=== PATIENT | female | born 1960 | race Caucasian/White ===

== ENCOUNTER → 2016-03-10 | Day surgery (SDC) | payer OTHER ==
[2016-03-08 13:33] VITALS: BMI 36.0
[~2016-03-10] VITALS: Ht 170.2 cm; Wt 107.0 kg
[2016-03-10] VITALS (8 sets, daily range): BP systolic 122–176; BP diastolic 74–124; PULSE 80–117; TEMP 37.1; O2SAT 92–100; Ht 170.2 cm; Wt 107.0 kg
[~2016-03-10] MED LIST: ACYC400T PO; AMT/25 PO; AMT50 PO; ASPI81TA28 PO; ATROPINE SULFATE 0.1 MG/ML 5ML SYR IV PRN; CMD5 PO; CRG3125 PO; DPKSR250 PO; ESCI1TAB10 PO; EpHEDrine SULFATE INJ 50 MG/ML AMP IV PRN; FENTANYL CITRATE INJ 50 MCG/1 ML 2 ML VIAL ONE; FRS/40 PO; KETAMINE HCL INJ 50 MG/ML 10 ML VIAL ONE; LACTATED RINGER'S 1000ML 1,000 ML IV SCH; METO50TA17 PO; MIDAZOLAM HCL 1 MG/ML 2ML VIAL ONE; OXYC1TAB3 PO; POTA10TA32 PO; PRENTAB26 PO; RANI150T3 PO; SUMA50TA15 PO; ZLF50 PO; ZVRUNK PO
--- NOTE | 2016-03-10 08:12 | Anesthesiology Progress Note ---
Anesthesia Post Op Note Date & Time Mar 10, 2016 at 08:11 Vital Signs Pain Intensity: 7 Vital Signs Past 12 Hours Date Time Temp Pulse Resp B/P Pulse Ox O2 Delivery O2 Flow Rate FiO2 03/10/16 08:01 88 20 153/97 99 Nasal Cannula 3 03/10/16 07:51 37.4 90 23 140/93 97 Nasal Cannula 3 03/10/16 07:50 98 24 155/94 100 Nasal Cannula 5 03/10/16 07:45 92 20 163/113 92 Nasal Cannula 5 03/10/16 07:44 94 12 174/124 92 Nasal Cannula 5 03/10/16 07:40 91 26 176/111 92 Nasal Cannula 5 03/10/16 07:35 117 10 161/97 93 Nasal Cannula 5 03/10/16 07:30 83 10 165/109 99 Nasal Cannula 5 03/10/16 07:05 37.1 80 16 137/88 93 Room Air Notes Mental Status: alert / awake / arousable, participated in evaluation Pt Amnestic to Procedure: Yes Nausea / Vomiting: adequately controlled Pain: adequately controlled Airway Patency, RR, SpO2: stable & adequate BP & HR: stable & adequate Hydration State: stable & adequate Anesthetic Complications: no major complications apparent
--- NOTE | 2016-03-10 08:43 | History & Physical Bridge Note ---
H&P Re-Evaluation Bridge Note: I have examined the patient, reviewed the History & Physical and in the interval since the performance of the History & Physical I have noted the following changes of clinical significance: No changes noted
--- NOTE | 2016-03-10 08:45 | Discharge Instructions ---
Discharge Instructions Admission Reason for Admission: W/Anesthesia Aortic Stenosis; *Dr Leslie To Do* Discharge Discharge Diagnosis / Problem: AORTIC STENOSIS Discharge Goals Goal(s): Diagnostic testing Activity Recommendations Activity Limitations: resume your previous activity . Instructions / Follow-Up Instructions / Follow-Up Cardiology Office will call Current Hospital Diet Patient's current hospital diet: Discharge Diet Recommended Diet: AHA Diet (Heart Healthy) Pending Studies Studies pending at discharge: no Medical Emergencies . Who to Call and When: Medical Emergencies: If at any time you feel your situation is an emergency, please call 911 immediately. . Non-Emergent Contact Non-Emergency issues call your: Bag Making Machine Operator . . "Provider Documentation" section prepared by Avinash Leslie. VTE Core Measure Inpt VTE Proph given/why not?: Treatment not indicated
--- NOTE | 2016-03-10 13:32 | TEE ---
*NOTICE TO RECEIVING DEMOCRAT AGENCY This information is strictly Confidential and protected under [place] law. [place] law prohibits you from making any further disclosure of this information unless further disclosure is expressly permitted by the written consent of the person to whom it pertains or is authorized by law. A general authorization for the release of medical or other information is not sufficient for this purpose. Hospital accepts no responsibility if the information is made available to any other person, INCLUDING THE PATIENT. Interpretation Summary * Name: SOL WOOD Study Date: 03/10/2016 07:24 AM BP: 153/97 mmHg * Patient Location: AIRCRAFT MAINTENANCE MANAGER HR: 88 * : 1960 (M/d/yyyy) Gender: Female Height: 67 in * Age: 55 yrs Ethnicity: [place] Weight: 275 lb * Ordering Physician: Avinash Leslie DO * Performed By: Rolanda Beckford * * Reason For Study: AORTIC STENOSIS * BSA: 2.3 m2 * -- Conclusions -- * Robinul 50 mg administered for to reduce oral secretions. * A bicuspid aortic valve cannot be excluded. * Severe aortic stenosis * Left ventricular systolic function is normal. Procedure Details * The transesophageal portion of this study was personally supervised by the undersigned interpreting physician. * DAMON Probe #2 utilized for procedure. * The study was performed in Cardiac Catheterization Lab. * Time out was conducted by the physician, nurse, and spd tech with positive identification of patient and procedure. * Informed consent for Transesophageal Echocardiogram was obtained prior to the procedure. * An intravenous line was placed. A topical anesthetic agent was used for oropharangeal anesthesia. A bite block was inserted. * Sedation performed by the anesthesia department. * The patient's vital signs, including blood pressure, heart rate, pulse oximetry and cardiac rhythm were monitored throughout the procedure . * Fentanyl 100 mcg was administered for procedural sedation. * Midazolam 2 mg administered for sedation. * Robinul 50 mg administered for to reduce oral secretions. * The posterior oropharynx was anesthetized using a topical anesthetic spray. A bite guard was inserted. * A multifrequency, multiplane transesopheageal echocardiographic endoscope was inserted and manipulated in the standard fashion to achieve multiplane views. * The transesophageal probe was passed without difficulty. * Limited views were obtained. * A 2D transesophageal echocardiogram with spectral and color flow Doppler was performed. Left Ventricle * The left ventricle is grossly normal size. * Left ventricular systolic function is normal. * The left ventricular wall motion is normal. Right Ventricle * The right ventricular systolic function is normal. Atria * The left atrial size is normal. * No thrombus is detected in the left atrial appendage. * Right atrial size is normal. * There is no Doppler evidence for an atrial septal defect. Mitral Valve * The mitral valve anatomy is normal. * Significant mitral regurgitation is absent. Tricuspid Valve * The tricuspid valve anatomy is normal. * Significant tricuspid regurgitation is absent. Aortic Valve * A bicuspid aortic valve cannot be excluded. * Severe aortic stenosis Pulmonic Valve * The pulmonic valve is not well seen, but is grossly normal. * There is no significant pulmonary regurgitation. Great Vessels * The aortic root and proximal ascending aorta are normal sized. Pericardium * There is no pericardial effusion.
== END | disposition home or self-care (01) ==
LOC: C.CATH 06:22
PROVIDERS: ATTEND Internal Medicine Interventional Cardiology
DX: Q23.0 Congenital stenosis of aortic valve (principal); Z79.899 Other long term (current) drug therapy; I10 Essential (primary) hypertension

== ENCOUNTER → 2016-04-11 | Day surgery (SDC) | payer OTHER ==
[~2016-04-11] VITALS: Ht 170.2 cm; Wt 106.0 kg
[~2016-04-11] MED LIST changes: +ACETAMINOPHEN 325 MG TAB PO PRN; -EpHEDrine SULFATE INJ 50 MG/ML AMP IV PRN; -KETAMINE HCL INJ 50 MG/ML 10 ML VIAL ONE; -LACTATED RINGER'S 1000ML 1,000 ML IV SCH; +ONDANSETRON INJ 2 MG/ML 2 ML VIAL IV PRN; +SODIUM CHLORIDE 0.9% 1000ML 1,000 ML IV SCH; +SODIUM CHLORIDE 0.9% 1000ML 250 ML IV PRN; -ZVRUNK PO
[2016-04-11 07:24] VITALS: Ht 170.2 cm; Wt 106.0 kg
[2016-04-11 07:26] VITALS: BP 119/87; PULSE 75; TEMP 36.2; O2SAT 92
[2016-04-11 10:01] LABS: ISTAT ARTERIAL BLOOD GAS HCO3 25 meq/L (19-24); ISTAT ARTERIAL BLOOD GAS PCO2 49 mmHg (35-46); ISTAT ARTERIAL BLOOD GAS PO2 39 mmHg (80-95); ISTAT ARTERIAL BLOOD GAS pH 7.32 (7.35-7.45); ISTAT CARBON DIOXIDE 27 mEq/l (24-31)
[2016-04-11 10:24] LABS: ISTAT ARTERIAL BLOOD GAS HCO3 24 meq/L (19-24); ISTAT ARTERIAL BLOOD GAS PCO2 43 mmHg (35-46); ISTAT ARTERIAL BLOOD GAS PO2 101 mmHg (80-95); ISTAT ARTERIAL BLOOD GAS pH 7.35 (7.35-7.45); ISTAT CARBON DIOXIDE 25 mEq/l (24-31)
--- NOTE | 2016-04-11 10:35 | Cardiac Catheterization ---
Procedure Note Procedure Date Apr 11, 2016. Pre-Procedure Diagnosis Valvular Disease AUC Score 8 Post-Procedure Diagnosis Normal Coronary Arteries, Normal Intracardiac Pressures Procedure(s) Performed Coronary Angiography, Left Heart Cath, Right Heart Cath, Aortography Plate Roller Dr. Leslie Lance Crewmember(s) None Estimated Blood Loss None Medication(s) Fentanyl, Versed, Lidocaine 1% Summary of Findings Unable to cross aortic valve due to severe stenosis. Normal coronaries. Hemodynamics Rest Ao: 143/94 Final Ao: 155/104 LV: Valve not crossed RA: 11 RV: 27/12 PA: 29/18 PW: 17 Recommendations valve replacement Specimens None Radiation Exposure (mGy) 1515 Contrast (mls) 141 Fluids (cc crystalloids) 144 Procedural Complication(s) None Disposition Tape Controlled Machine Stitcher Holding/Recovery ACC Data Cardiac Status Clinical evaluation leading to the procedure CAD Presntation: No Sxs, no angina Anginal Classification: No symptoms Heart Failure: No Cardiogenic Shock w/in 24Hrs: No Cardiac Arrest w/in 24Hrs: No Imaging studies past 6 months: Yes Stress studies past 6 months: No Standard Exercise Stress Test: No Stress Echocardiogram: No Stress Testing w/SPECT MPI: No Cardiac CTA: No Coronary Anatomy Dominant: Left Left Main (% Stenosis): Normal LAD (% Stenosis): Normal Circumflex (% Stenosis): Normal RCA (% Stenosis): Normal Aortography Aortic Regurgitation: None Diagnostic Physician's Name: Avinash Leslie, Status: Elective Closure Device Percutaneous Entry Location: Femoral Closure Device: Mynx Recommendations: Medical therapy and/or Counseling
--- NOTE | 2016-04-11 11:15 | CARDIAC CATH REPORT ---
PROCEDURES: 1. Left heart catheterization. 2. Right heart catheterization. 3. Coronary angiography. 4. Aortography. HISTORY: The patient is a 55-year-old female who has had known aortic stenosis and recently had an echocardiogram for followup which suggested severe aortic stenosis. The patient was completely asymptomatic in regard to her heart valve. It was decided to perform a transesophageal echocardiogram to confirm the diagnosis of aortic stenosis, which was completed several weeks ago and agreed with the transthoracic study. The patient is now scheduled for cardiac catheterization in preparation for surgery. PROCEDURE SUMMARY: The patient was seen in the holding area of the energy systems laboratory director. Once informed consent was obtained, she was taken to the cardiac catheterization lab. She was a difficult access from the femoral approach. Eventually, an arterial line was placed in the right femoral artery, and with the use of ultrasound, a sheath was placed in the left femoral vein. The study then continued on. A [place]-Pham catheter was utilized for right heart pressures and cardiac outputs, and preformed diagnostic catheter was utilized for the coronary angiograms. The aortic valve, however, could not be crossed with the wire. Multiple catheters were utilized in an attempt to gain access through the aortic valve. The patient was uncomfortable on the x-ray table and eventually it was decided that we should proceed on with the cardiac catheterization. At the end of the procedure, the arterial line was removed with the Mynx device. The patient then was transferred to the holding area of the energy systems laboratory director in stable condition. AORTOGRAM: There is evidence of heavy calcium at the aortic root and aortic valve. There is post-stenotic dilatation of the ascending aorta. There is no significant aortic insufficiency. CORONARY ANGIOGRAPHY: Selective injections of the left coronary artery reveal it to be large and dominant. The left main trunk is widely patent. The LAD extends to the apex of the heart, giving off a single large diagonal branch. The LAD system is widely patent. The left circumflex artery consists principally of 2 posterior lateral marginal branches that also supply the septum. The left circumflex system is widely patent. Selective injections of the right coronary artery reveal it to be nondominant and widely patent. HEMODYNAMIC DATA: The right atrial pressure is a mean of 11 mmHg, right ventricular pressure is 27/12 mmHg, pulmonary artery pressure is 29/18 mmHg, pulmonary capillary wedge pressure is a mean of 17 mmHg, central aortic pressure is 155/104. Cardiac output by thermal dilution is 5.1 liters per minute. SUMMARY: The patient has critical calcific aortic stenosis which we were not able to cross with a wire and could not place a catheter across. She has post-stenotic dilatation of the ascending aorta. Coronary anatomy is widely patent and within normal limits. RECOMMENDATIONS: The patient has a transthoracic as well such as a transesophageal echocardiogram that suggests severe aortic stenosis. As mentioned above, we were not able to cross the aortic valve due to the heavy calcium and stenosis. We proceeded on with the heart catheterization and she has normal coronaries but the aorta is dilated. She will need an aortic valve replacement and possibly aortic root replacement as well. We will have a consultation with the surgeons.
--- NOTE | 2016-04-11 13:47 | Discharge Instructions ---
Discharge Instructions Procedure Procedure Date: Apr 11, 2016. Reason for Visit: Aortic Stenosis *. Discharge Discharge Date: Apr 11, 2016. Discharge Diagnosis: Aortic Stenosis Last Recorded Wt (Kilograms): 106 Anesthesia Post Anesthesia Instructions: If you have had General Anesthesia or IV Sedation: * Do not drive today. * Resume driving when surgeon permits. * Do not make important decisions or sign legal documents today. * Call surgeon for: 1. Temperature elevations greater than 101 degrees F. 2. Uncontrollable pain. 3. Excessive bleeding. 4. Persistent nausea and vomiting. 5. Medication intolerance (nausea, vomiting or rash). * For nausea and vomiting use only clear liquids such as: tea, soda, bouillon until nausea subsides, then gradually increase diet as tolerated. * If you have any concerns or questions, call your surgeon's office. If physician is unavailable and it is an emergency, call 911 or go to the nearest emergency room. Instructions Activity Recommendations: limitations Recommended Home Diet: resume previous diet Allergies: Coded Allergies: Penicillins (Verified Allergy, Mild, rash, 03/08/16) Provider Instructions ACTIVITY RECOMMENDATIONS: It is common to feel weak and fatigue for a few days. * Do not drive or operate any motorized equipment for the next three days. * Limit stair usage (2 or 3 trips a day only) for the next three days. * Do not lift anything heavier than 10 pounds for the next three days. * Do not engage in vigorous exercise or any sports for the next five days. * You may shower the day after your procedure, but do not immerse the area for three days. Cleanse the site gently with soap and water. SPECIAL CARE INSTRUCTIONS: * You may replace the pressure dressing or band-aid the morning after the procedure. * After your procedure, it is normal to have a small bruise or small lump at the site. Examine your site daily for any change in the bruise or lump, redness, swelling, drainage or numbness. Notify your doctor if any change. BLEEDING: * If there is a small amount of bleeding at the site, lie down and apply firm pressure with a clean cloth for ten minutes. When the bleeding stops, lie quietly keeping the procedure limb straight for six hours. Notify your doctor as soon as possible. * If the bleeding does not stop after ten minutes or if there is a large amount of bleeding or spurting, call 911 immediately. Continue to lie down and hold firm pressure until help arrives. SKIN IRRITATION: * You may experience some redness and/or swelling in the area where radiation was administered. If any skin irritation occurs, please contact your family physician. FOLLOW UP VISIT: Keep any scheduled doctor appointments. Follow Up Follow-up with: Office will call with appointment to see cardiothoracic surgery Aneudy Boland Recommendations: Call your doctor if: * Temperature above 101 degrees * Pain not relieved by pain medicine ordered * There is increased drainage or redness from any incision * You have any unanswered questions or concerns. Your Doctors Instructions noted above were prepared by provider Avinash Leslie. Patient Signature Section: Patient Instructions Signature Page Rosi Jeffery Patient (or Guardian) Signature/Date: I have read and understand the instructions given to me by my caregivers. Caregiver/RN/Doctor Signature/Date: The above-named patient and/or guardian has received patient instructions on this date. + Original Patient Signature Page (only) stays with chart. Please make copy for patient.
[2016-04-11 14:30] VITALS: BP 150/106; PULSE 88; O2SAT 99
== END | disposition home or self-care (01) ==
LOC: C.CATH 06:52
PROVIDERS: ATTEND Internal Medicine Interventional Cardiology
DX: I25.10 Atherosclerotic heart disease of native coronary artery without angina pectoris (principal); Q23.1 Congenital insufficiency of aortic valve; I10 Essential (primary) hypertension

== ENCOUNTER 2016-06-14 13:49 | Inpatient (IN) | payer OTHER ==
[~2016-06-14] VITALS: Ht 170.2 cm; Wt 100.4 kg
[2016-06-14] VITALS (7 sets, daily range): BP systolic 93–118; BP diastolic 62–83; PULSE 96–125; TEMP 36.5–36.7; O2SAT 96–99; Ht 170.2 cm; Wt 100.4 kg
[~2016-06-14 13:49] MED LIST changes: -ACETAMINOPHEN 325 MG TAB PO PRN; -AMT50 PO; -ASPI81TA28 PO; -ATROPINE SULFATE 0.1 MG/ML 5ML SYR IV PRN; -CMD5 PO; -DPKSR250 PO; -ESCI1TAB10 PO; -FENTANYL CITRATE INJ 50 MCG/1 ML 2 ML VIAL ONE; -FRS/40 PO; -METO50TA17 PO; -MIDAZOLAM HCL 1 MG/ML 2ML VIAL ONE; -ONDANSETRON INJ 2 MG/ML 2 ML VIAL IV PRN; -OXYC1TAB3 PO; -POTA10TA32 PO; -PRENTAB26 PO; -SODIUM CHLORIDE 0.9% 1000ML 1,000 ML IV SCH; -SODIUM CHLORIDE 0.9% 1000ML 250 ML IV PRN; -ZLF50 PO
[2016-06-14] MEDS ORDERED: ONDANSETRON INJ 2 MG/ML 2 ML VIAL IV STA (14:10)
[2016-06-14] MEDS ORDERED: DILTIAZEM BOLUS / DRIP IV STA ×2 (14:10→19:39)
[2016-06-14] MEDS ORDERED: SODIUM CHLORIDE 0.9% 500ML 500 ML IV STA (14:10)
[2016-06-14] MEDS ORDERED: DILTIAZEM HCL 5 MG/ML 5 ML VIAL IV STA (14:10)
[2016-06-14] MEDS ORDERED: HYDROmorphone INJ 1 MG/ML SYR IV STA (14:10)
--- NOTE | 2016-06-14 14:12 | EMERGENCY ROOM VISIT NOTE ---
History Report prepared by Jessica: Michaelle Jurado Under the Supervision of: Dr. Murtaza Escobar M.D. First contact with patient: 14:01 Chief Complaint: SHORTNESS OF BREATH Stated Complaint: SOB, GALLOPPING HEART, TIREDNESS History of Present Illness The patient is a 55 year old female who presents to the Emergency Room with complaints of persistent shortness of breath over the past 2-3 days. She also complains of feeling very tired and occasional palpitations, which she describes as galloping. The patient has a history of aortic stenosis. The patient states that she had her aorta replaced with a pig valve on May 29 in [place] by Dr. Ramirez. Since her surgery, she has been taking narcotics for chest pain adjacent to the incision site. Prior to her surgery her symptoms included shortness of breath and fatigue. She follows with Dr. Leslie of Cardiology. Past medical history includes hypertension. She is not on a blood thinner. Source of History: patient Onset: 2-3 days ago Position: other (global) Quality: other (shortness of breath) Timing: other (persistent) Associated Symptoms: No chest pain Note: Other symptoms: palpitations, tired Review of Systems See HPI for pertinent positives & negatives. A total of 10 systems reviewed and were otherwise negative. Past Medical & Surgical Medical Problems: (1) Ascending aortic aneurysm (2) Bicuspid aortic valve (3) Depression (4) GERD (gastroesophageal reflux disease) (5) Herpes zoster (6) HTN (hypertension) Surgical Problems: (1) H/O tubal ligation (2) S/P ascending aortic aneurysm repair (3) S/P AVR (aortic valve replacement) Family History Gallbladder disease Heart disease Hypertension Social History Smoking Status: Never Smoker Alcohol Use: none Drug Use: none Marital Status: single Housing Status: lives alone Occupation Status: disabled Current/Historical Medications Scheduled Acyclovir (Acyclovir), 1 TAB PO BID Amitriptyline Hcl (Elavil), 50 MG PO HS Aspirin (Aspirin Ec), 81 MG PO QAM Carvedilol (Carvedilol), 3.125 MG PO BID Escitalopram Oxalate (Lexapro), 20 MG PO QAM Furosemide (Lasix), 40 MG PO DAILY Multivit/Min/Iron/Fol Ac/Pren ( Vitamin), 1 TAB PO DAILY Potassium Chloride Microencaps (Potassium Chloride Er), 10 MEQ PO DAILY Ranitidine Hcl (Zantac), 150 MG PO BID Scheduled PRN Oxycodone Ir (Roxicodone Ir), 5 MG PO Q4H PRN for Severe Pain Sumatriptan Succinate (Imitrex), 50 MG PO DIRECTED PRN for Migraine Allergies Coded Allergies: Penicillins (Verified Allergy, Mild, rash, 06/14/16) Physical Exam Vital Signs Date Time Temp Pulse Resp B/P Pulse Ox O2 Delivery O2 Flow Rate FiO2 06/14/16 15:15 93 20 123/64 97 Room Air 06/14/16 14:45 125 22 113/78 95 Room Air 06/14/16 14:34 94 Room Air 06/14/16 14:08 137 06/14/16 13:57 36.6 138 18 90/54 98 Room Air Physical Exam GENERAL: Patient is a healthy-appearing well-nourished 55 year old female HEAD: Normocephalic atraumatic EYES: Ocular movements intact pupils equal and react to light OROPHARYNX mucous membranes are moist no exudates present no erythema or edema present NECK: Supple no nuchal rigidity CHEST: Good equal expansion LUNGS: Clear and equal to auscultation CARDIAC: Normal S1 and S2 ABDOMEN: Soft nontender no guarding BACK: No CVA tenderness EXTREMITIES: No pain upon palpation normal muscle strength in all groups no clubbing cyanosis or edema NEURO: Patient is following commands is answering questions appropriately. Alert and oriented x3 Cranial Nerves 2-12 grossly intact Medical Decision & Procedures ER Provider Diagnostic Interpretation: Radiology results as stated below per my review and radiologist interpretation: CHEST ONE VIEW PORTABLE CLINICAL HISTORY: Sepsis 50 COMPARISON STUDY: No previous studies for comparison. FINDINGS: The heart is normal in size. There are postsurgical changes of a midline sternotomy. There is no failure. There is no focal pulmonary consolidation. Haziness at the left lung base, likely is secondary to overlying soft tissue.[ IMPRESSION: Slight haziness at the left lung base, likely secondary to overlying soft tissues. No evidence of failure. No evidence of lobar consolidation Electronically signed by: Angel Figueroa M.D. 06/14/2016 2:37 PM Dictated Date/Time: 06/14/2016 2:[address] ANGIOGRAM OF THE CHEST CLINICAL HISTORY: Atypical chest pain. COMPARISON STUDY: Chest x-ray dated 06/14/2016. TECHNIQUE: Following the IV administration of 94 cc of Optiray 320, CT angiogram of the chest was performed from the upper abdomen to the thoracic inlet utilizing the pulmonary embolus protocol. Images are reviewed in the axial, sagittal, and coronal planes. 3-D MIPS images are created and assessed. IV contrast was administered without complication. CT DOSE: 635.86 mGy.cm FINDINGS: Thyroid: Imaged portions of the thyroid gland appear enlarged and heterogeneous. There are bilateral low-attenuation thyroid nodules as well as coarse calcifications. The largest nodules seen on the left and measures up to 2.3 cm. Thoracic aorta: There is atherosclerotic calcification of the thoracic aorta, which is normal in caliber and demonstrates standard 3-vessel arch anatomy. There is mild irregularity and focal narrowing seen involving the distal aortic arch/proximal descending thoracic aorta without clear evidence of cortication. No dissection is seen. Pulmonary vasculature: The pulmonary trunk is normal in caliber. There are no filling defects identified in main, lobar, or segmental pulmonary branches to suggest pulmonary embolus. Heart: The patient is status post midline sternotomy. Findings suggest aortic and mitral valve surgery. The heart is enlarged and there is a small pericardial effusion. Lungs and pleural spaces: Mild emphysematous change is observed. No airspace consolidation is identified typical for pneumonia. There are trace pleural effusions with dependent atelectasis. There are scattered pulmonary nodules. The largest nodule is seen in the right lower lobe on image #141 and measures 5 mm. 4 mm nodules are seen in the left upper lobe on image #225 and at the left lung base on images #98 and #96. A 2 mm right middle lobe nodule seen image #130. The trachea and central airways are clear. Mediastinum: There is no mediastinal lymphadenopathy. [place]: Clear. Axillae: There is no axillary lymphadenopathy. Upper abdomen: There is evidence of hepatic steatosis. Partially visualized upper abdominal viscera is within normal limits. Skeletal structures: No lytic or blastic bony lesions are seen. Soft tissues: Presternal soft tissue induration may be related to recent surgery. IMPRESSION: 1. There is no evidence of pulmonary embolus in the main, lobar, or segmental pulmonary arteries. 2. Cardiomegaly and small pericardial effusion. 3. There is presternal soft tissue induration, possibly related to recent surgery/sternotomy. Clinical correlation will be required. 4. Trace pleural effusions. There is no airspace consolidation seen typical for pneumonia. 5. Emphysema. 6. There are small pulmonary nodules (at least 5) measuring up to 5 mm. These can be followed as per the Fleischner criteria. 7. The thyroid gland is enlarged, heterogeneous, and multinodular. Follow-up with a nonemergent thyroid ultrasound is recommended. 8. Suspect hepatic steatosis. 9. Additional findings as above. Please refer to below summary of Fleischner criteria recommendations for follow-up of incidental CT nodules (Sang Kendall, Guidelines for management of small pulmonary nodules detected on CT scans: A statement from the Fleischner Society, Radiology 237: [phone].) SOLID NODULES Solitary nodule size: <6 mm * low risk patients: no follow-up needed * high risk patients: optional CT at 12 months Solitary nodule size: 6-8 mm * low risk patients: follow-up at 6-12 months, then consider further follow-up at 18-24 months * high risk patients: initial follow-up CT at 6-12 months and then at 18-24 months if no change Solitary nodule size: >8 mm * either low or high risk patients - consider follow-up CT at 3 months, and/or CT-PET, and/or biopsy Multiple nodules size: <6 mm * low risk patients: no routine follow-up * high risk patients: optional CT at 12 months Multiple nodules size: 6-8 mm * low risk patients: follow-up at 3-6 months, then consider further follow-up at 18-24 months * high risk patients: follow-up at 3-6 months, then at 18-24 months if no change Multiple nodules size: >8 mm * low risk patients: follow-up at 3-6 months, then consider further follow-up at 18-24 months * high risk patients: follow-up at 3-6 months, then at 18-24 months if no change Note: newly detected indeterminate nodule in persons 35 years of age or older. * low risk patients: minimal or absent history of smoking and/or other known risk factors * high risk patients: history of smoking or of other known risk factors (e.g. first degree relative with lung cancer, or exposure to asbestos, radon, uranium) * if a nodule up to 8 mm is partly solid or is ground glass further follow-up is required after 24 months to exclude possible slow growing adenocarcinoma (MILIND) SUBSOLID NODULES Solitary pure ground-glass nodule * nodule size <6 mm - no CT follow-up required * nodule size >=6 mm - follow-up CT at 6-12 months, then every 2 years until 5 years Solitary part-solid nodule * nodule size <6 mm - no CT follow-up required * nodule size >=6 mm - follow-up CT at 3-6 months. If unchanged, and solid component remains <6 mm, then annual follow-up for 5 years Multiple subsolid nodules * nodule size <6 mm - follow-up CT at 3-6 months, consider further follow-up at 2 and 4 years if stable * nodule size >=6 mm - follow-up CT at 3-6 months, subsequent management based on the most suspicious nodule(s) Electronically signed by: Brady Waggoner M.D. 06/14/2016 3:05 PM Dictated Date/Time: 06/14/2016 2:54 PM Laboratory Results Test 06/14/16 14:20 06/14/16 14:23 06/14/16 14:27 Immature Granulocyte % (Auto) 0.4 % White Blood Count 9.57 K/uL (4.8-10.8) Red Blood Count 4.01 M/uL (4.2-5.4) Hemoglobin 12.8 g/dL (12.0-16.0) Hematocrit 37.8 % (37-47) Mean Corpuscular Volume 94.3 fL (80-100) Mean Corpuscular Hemoglobin 31.9 pg (25-34) Mean Corpuscular Hemoglobin Concent 33.9 g/dl (32-36) Platelet Count 583 K/uL (130-400) Mean Platelet Volume 9.5 fL (7.4-10.4) Neutrophils (%) (Auto) 58.7 % Lymphocytes (%) (Auto) 28.8 % Monocytes (%) (Auto) 8.8 % Eosinophils (%) (Auto) 2.2 % Basophils (%) (Auto) 1.1 % Neutrophils # (Auto) 5.61 K/uL (1.4-6.5) Lymphocytes # (Auto) 2.76 K/uL (1.2-3.4) Monocytes # (Auto) 0.84 K/uL (0.11-0.59) Eosinophils # (Auto) 0.21 K/uL (0-0.5) Basophils # (Auto) 0.11 K/uL (0-0.2) Immature Granulocyte # (Auto) 0.04 K/uL (0.00-0.02) Magnesium Level 2.5 mg/dl (1.8-2.4) Total Bilirubin 0.4 mg/dl (0.2-1) Aspartate Amino Transf (AST/SGOT) 35 U/L (15-37) Alanine Aminotransferase (ALT/SGPT) 62 U/L (12-78) Alkaline Phosphatase 119 U/L (45-117) Total Creatine Kinase 35 U/L (26-192) Total Protein 7.5 gm/dl (6.4-8.2) Albumin 3.3 gm/dl (3.4-5.0) Globulin 4.2 gm/dl (2.5-4.0) Albumin/Globulin Ratio 0.8 (0.9-2) Thyroid Stimulating Hormone (TSH) 0.913 uIu/ml (0.300-4.500) Hepatitis C Antibody Screen NEG (NEG) Bedside Hemoglobin 12.9 g/dl (12.0-16.0) Bedside Hematocrit 38 % (37-47) Bedside Sodium 137 mEq/L (135-144) Bedside Potassium 4.2 mEq/L (3.3-5.0) Bedside Chloride 101 mEq/L (101-112) Bedside Total CO2 23 mEq/l (24-31) Bedside Blood Urea Nitrogen 11 mg/dl (7-18) Bedside Creatinine 0.6 mg/dl (0.6-1.3) Bedside Glucose (other) 103 mg/dl (70-99) Bedside Ionized Calcium ([place]) 1.18 mmol/l (1.12-1.32) Bedside Lactic Acid Venous 1.20 mmol/L (0.90-1.70) Labs reviewed by ED physician. Medications Administered Medications (Trade) Dose Ordered Sig/Favian Route Start Time Stop Time Status Last Admin Dose Admin Sodium Chloride (Nss 500ml) 500 ml @ 999 mls/hr Q31M STAT IV 06/14/16 14:10 06/14/16 14:45 DC 06/14/16 15:03 999 MLS/HR Diltiazem HCl (Cardizem Inj) 25 mg NOW STAT IV 06/14/16 14:10 06/14/16 14:13 DC 06/14/16 14:59 25 MG Hydromorphone HCl (Dilaudid Inj) 1 mg NOW STAT IV 06/14/16 14:10 06/14/16 14:13 DC 06/14/16 14:42 1 MG Ondansetron HCl 4 mg 4 mg NOW STAT IV 06/14/16 14:10 06/14/16 14:13 DC 06/14/16 14:42 4 MG Diltiazem HCl/ Dextrose (Cardizem Inj/D5 100ml) 125 ml @ 5 mls/hr Q24H PRN IV 06/14/16 14:30 06/14/16 17:20 DC 06/14/16 15:02 5 MLS/HR ECG Indication: SOB/dyspnea Rate (beats per minute): 131 Rhythm: atrial fibrillation (with RVR) Findings: PVC, no acute ischemic change Comparison ECG Date: 03/10/16 Change: A-fib with RVR has replaced normal sinus rhythm ED Course 1402: Past medical records reviewed. The patient was evaluated in room B1. A complete history and physical examination was performed. 1410: Ordered Zofran Inj 4 mg IV, Dilaudid Inj 1 mg IV, Diltiazem HCl 1 ea IV, Diltiazem HCl 25 mg IV, NSS 500 ml @ 999 mls/hr IV. 1430: Ordered Diltiazem HCl 125 mg/Dextrose 125 ml @ 5 mls/hr IV. 1533: Upon reexamination the patient is feeling better. I discussed results and treatment plan with the patient. She verbalizes agreement and understanding. [facility] The patient will be evaluated for further management. 1543: I discussed the case with Dr. Anuj Velázquez Cardiology. He will come to see the patient. Medical Decision Differential diagnosis: Etiologies such as metabolic, infection, hypo/hyperglycemia, electrolyte abnormalities, cardiac sources, intracerebral event, toxicologic, neurologic, as well as others were entertained. This is a 55-year-old female that presents to the emergency department with new onset atrial fibrillation. The patient has been complaining of shortness of breath for the past 2 or 3 days. Her heart rate is in the 150s therefore she was given Cardizem bolus and started on a Cardizem drip. I did discuss the case with Dr. Leslie who is on-call for cardiology. The patient was admitted to the medicine service. Patient was in agreement with the treatment plan. Consults Time Called: 1509 Consulting Physician: Dr. Anuj Velázquez Cardiology Returned Call: 1543 I discussed the case with him. He will come to see the patient. Additional Consults: Time Called: 1530 Consulted Physician: NI[facility] Returned Call: 1533 Additional Comments: I discussed the case with her. The patient will be evaluated for further management. Impression Primary Impression: New onset a-fib Critical Care I have personally spent greater than 90 minutes of critical care time in the direct management of this patient. This includes bedside care, interpretation of diagnostic studies, and testing, discussion with consultants, patient, and family members, and other required patient management activities. This 90 minutes is in excess of all separately billable procedures. Scribe Attestation The scribe's documentation has been prepared under my direction and personally reviewed by me in its entirety. I confirm that the note above accurately reflects all work, treatment, procedures, and medical decision making performed by me. Departure Information Dispostion Being Evaluated By Hospitalist Referrals No Doctor, Assigned (PCP) Patient Instructions My [facility]
[2016-06-14] MEDS ORDERED: OPTIRAY 320 IV PRN (14:15)
[2016-06-14] MEDS ORDERED: NURSING VERBAL MED ORDER ONE ×2 (14:30→17:15)
[2016-06-14] MEDS ORDERED: DILTIAZEM HCL INJ 125 MG in DEXTROSE 5% 100ML IV PRN ×2 (14:30→20:00)
[2016-06-14 14:33] LABS: BASO % 1.1 %; BASO ABS # 0.11 K/uL (0-0.2); COMPLETE YES; EOS % 2.2 %; HEMATOCRIT 37.8 % (37-47); IG% 0.4 %; LYMPH % 28.8 %; LYMPH ABS # 2.76 K/uL (1.2-3.4); MEAN CELL VOLUME 94.3 fL (80-100); MEAN CORPUSCULAR HEMOGLOBIN 31.9 pg (25-34); MEAN CORPUSCULAR HGB CONC 33.9 g/dl (32-36); MEAN PLATELET VOLUME 9.5 fL (7.4-10.4); MONO % 8.8 %; NEUT % 58.7 %; PLATELET COUNT 583 K/uL (130-400); RED BLOOD COUNT 4.01 M/uL (4.2-5.4); WHITE BLOOD COUNT 9.57 K/uL (4.8-10.8)
--- NOTE | 2016-06-14 14:39 | DIAGNOSTIC IMAGING REPORT ---
CHEST ONE VIEW PORTABLE CLINICAL HISTORY: Sepsis 50 COMPARISON STUDY: No previous studies for comparison. FINDINGS: The heart is normal in size. There are postsurgical changes of a midline sternotomy. There is no failure. There is no focal pulmonary consolidation. Haziness at the left lung base, likely is secondary to overlying soft tissue.[ IMPRESSION: Slight haziness at the left lung base, likely secondary to overlying soft tissues. No evidence of failure. No evidence of lobar consolidation Electronically signed by: Angel Figueroa M.D. 06/14/2016 2:37 PM Dictated Date/Time: 06/14/2016 2:34 PM
[2016-06-14 14:41] LABS: ISTAT CREATININE 0.6 mg/dl (0.6-1.3); ISTAT HEMOGLOBIN 12.9 g/dl (12.0-16.0); ISTAT IONIZED CALCIUM 1.18 mmol/l (1.12-1.32)
[2016-06-14 14:49] LABS: PROTHROMBIN TIME (PATIENT) 10.6 SECONDS (9.0-12.0)
[2016-06-14 15:05] LABS: ALB/GLOB RATIO 0.8 (0.9-2); ALKALINE PHOSPHATASE 119 U/L (45-117); ALT/SGPT 62 U/L (12-78); AST/SGOT 35 U/L (15-37); BLOOD UREA NITROGEN 12 mg/dl (7-18); BUN/CREATININE RATIO 16.4 (10-20); CALCIUM 8.9 mg/dl (8.5-10.1); CARBON DIOXIDE 25 mmol/L (21-32); CHLORIDE 103 mmol/L (98-107); CREATININE 0.72 mg/dl (0.60-1.20); GLUCOSE 105 mg/dl (70-99); POTASSIUM 4.2 mmol/L (3.5-5.1); SODIUM 138 mmol/L (136-145)
--- NOTE | 2016-06-14 15:07 | DIAGNOSTIC IMAGING REPORT ---
CT ANGIOGRAM OF THE CHEST CLINICAL HISTORY: Atypical chest pain. COMPARISON STUDY: Chest x-ray dated 06/14/2016. TECHNIQUE: Following the IV administration of 94 cc of Optiray 320, CT angiogram of the chest was performed from the upper abdomen to the thoracic inlet utilizing the pulmonary embolus protocol. Images are reviewed in the axial, sagittal, and coronal planes. 3-D MIPS images are created and assessed. IV contrast was administered without complication. CT DOSE: 635.86 mGy.cm FINDINGS: Thyroid: Imaged portions of the thyroid gland appear enlarged and heterogeneous. There are bilateral low-attenuation thyroid nodules as well as coarse calcifications. The largest nodules seen on the left and measures up to 2.3 cm. Thoracic aorta: There is atherosclerotic calcification of the thoracic aorta, which is normal in caliber and demonstrates standard 3-vessel arch anatomy. There is mild irregularity and focal narrowing seen involving the distal aortic arch/proximal descending thoracic aorta without clear evidence of cortication. No dissection is seen. Pulmonary vasculature: The pulmonary trunk is normal in caliber. There are no filling defects identified in main, lobar, or segmental pulmonary branches to suggest pulmonary embolus. Heart: The patient is status post midline sternotomy. Findings suggest aortic and mitral valve surgery. The heart is enlarged and there is a small pericardial effusion. Lungs and pleural spaces: Mild emphysematous change is observed. No airspace consolidation is identified typical for pneumonia. There are trace pleural effusions with dependent atelectasis. There are scattered pulmonary nodules. The largest nodule is seen in the right lower lobe on image #141 and measures 5 mm. 4 mm nodules are seen in the left upper lobe on image #225 and at the left lung base on images #98 and #96. A 2 mm right middle lobe nodule seen image #130. The trachea and central airways are clear. Mediastinum: There is no mediastinal lymphadenopathy. [place]: Clear. Axillae: There is no axillary lymphadenopathy. Upper abdomen: There is evidence of hepatic steatosis. Partially visualized upper abdominal viscera is within normal limits. Skeletal structures: No lytic or blastic bony lesions are seen. Soft tissues: Presternal soft tissue induration may be related to recent surgery. IMPRESSION: 1. There is no evidence of pulmonary embolus in the main, lobar, or segmental pulmonary arteries. 2. Cardiomegaly and small pericardial effusion. 3. There is presternal soft tissue induration, possibly related to recent surgery/sternotomy. Clinical correlation will be required. 4. Trace pleural effusions. There is no airspace consolidation seen typical for pneumonia. 5. Emphysema. 6. There are small pulmonary nodules (at least 5) measuring up to 5 mm. These can be followed as per the Fleischner criteria. 7. The thyroid gland is enlarged, heterogeneous, and multinodular. Follow-up with a nonemergent thyroid ultrasound is recommended. 8. Suspect hepatic steatosis. 9. Additional findings as above. Please refer to below summary of Fleischner criteria recommendations for follow-up of incidental CT nodules (Sang Kendall, Guidelines for management of small pulmonary nodules detected on CT scans: A statement from the Fleischner Society, Radiology 237: [phone].) SOLID NODULES Solitary nodule size: <6 mm * low risk patients: no follow-up needed * high risk patients: optional CT at 12 months Solitary nodule size: 6-8 mm * low risk patients: follow-up at 6-12 months, then consider further follow-up at 18-24 months * high risk patients: initial follow-up CT at 6-12 months and then at 18-24 months if no change Solitary nodule size: >8 mm * either low or high risk patients - consider follow-up CT at 3 months, and/or CT-PET, and/or biopsy Multiple nodules size: <6 mm * low risk patients: no routine follow-up * high risk patients: optional CT at 12 months Multiple nodules size: 6-8 mm * low risk patients: follow-up at 3-6 months, then consider further follow-up at 18-24 months * high risk patients: follow-up at 3-6 months, then at 18-24 months if no change Multiple nodules size: >8 mm * low risk patients: follow-up at 3-6 months, then consider further follow-up at 18-24 months * high risk patients: follow-up at 3-6 months, then at 18-24 months if no change Note: newly detected indeterminate nodule in persons 35 years of age or older. * low risk patients: minimal or absent history of smoking and/or other known risk factors * high risk patients: history of smoking or of other known risk factors (e.g. first degree relative with lung cancer, or exposure to asbestos, radon, uranium) * if a nodule up to 8 mm is partly solid or is ground glass further follow-up is required after 24 months to exclude possible slow growing adenocarcinoma (MILIND) SUBSOLID NODULES Solitary pure ground-glass nodule * nodule size <6 mm - no CT follow-up required * nodule size >=6 mm - follow-up CT at 6-12 months, then every 2 years until 5 years Solitary part-solid nodule * nodule size <6 mm - no CT follow-up required * nodule size >=6 mm - follow-up CT at 3-6 months. If unchanged, and solid component remains <6 mm, then annual follow-up for 5 years Multiple subsolid nodules * nodule size <6 mm - follow-up CT at 3-6 months, consider further follow-up at 2 and 4 years if stable * nodule size >=6 mm - follow-up CT at 3-6 months, subsequent management based on the most suspicious nodule(s) Electronically signed by: Brady Waggoner M.D. 06/14/2016 3:05 PM Dictated Date/Time: 06/14/2016 2:54 PM
[2016-06-14] MEDS ORDERED: AMT50 PO (15:21)
[2016-06-14] MEDS ORDERED: ESCI1TAB10 PO (15:21)
[2016-06-14] MEDS ORDERED: FRS/40 PO (15:21)
[2016-06-14] MEDS ORDERED: OXYC1TAB3 PO (15:21)
[2016-06-14] MEDS ORDERED: PRENTAB26 PO (15:21)
[2016-06-14] MEDS ORDERED: ASPI81TA28 PO (15:21)
[2016-06-14] MEDS ORDERED: POTA10TA32 PO (15:21)
[2016-06-14] MEDS ORDERED: ONDANSETRON INJ 2 MG/ML 2 ML VIAL IV PRN (16:15)
[2016-06-14] MEDS ORDERED: ACETAMINOPHEN 325 MG TAB PO PRN (16:15)
[2016-06-14] MEDS ORDERED: AMIODARONE IV BOLUS / DRIP IV STA (16:15)
[2016-06-14] MEDS ORDERED: PROMETHAZINE HCL INJ 12.5 MG in SODIUM CHLORIDE 0.9% 50ML 50 ML IV PRN (16:30)
[2016-06-14] MEDS ORDERED: AMIODARONE / D5W 100 ML IV ONE (16:50)
[2016-06-14] MEDS ORDERED: HEPARIN SOD 5000 UNIT/0.5 ML CARP IV STA (16:55)
--- NOTE | 2016-06-14 16:56 | CARDIOLOGY CONSULTATION ---
DATE OF CONSULTATION: 06/14/2016 DATE OF CONSULTATION: 06/14/2016. Consultation for the [facility] hospitalist. REASON FOR CONSULTATION: Atrial fibrillation. HISTORY OF PRESENT ILLNESS: This is a 55-year-old female who is well known to my service. She presented with symptoms of shortness of breath. She had a history of a bicuspid aortic valve. The findings of the echocardiogram and the patient's symptoms did not correlate and we performed a transesophageal echocardiogram that suggested a severe aortic stenosis. We then went on to perform a cardiac catheterization and she was evaluated by cardiothoracic surgery. This month she underwent an aortic valve replacement and root repair by cardiothoracic surgery at [facility]. Her postoperative course was unremarkable and she was discharged home. She did well until about Sunday. She states that she felt some heart palpitations and some mild dyspnea. Today, she felt a lot worse and her heart was racing and she was dyspneic. She presented to the Emergency Department where she was found to be in atrial fibrillation with RVR. She has been started on IV heparin and diltiazem. Her heart rates have slowed and she feels much improved. ALLERGIES: PENICILLIN. PAST MEDICAL HISTORY: As described above. She has a history of congenital bicuspid aortic valve with severe aortic stenosis and aneurysm of the aortic root and ascending aorta. She just had a repair and replacement of the aortic valve performed earlier this month. She also has a history of hypertension and depression. No prior history of diabetes, strokes or kidney disease. SOCIAL HISTORY: She is a never smoker. FAMILY MEDICAL HISTORY: Noncontributory. REVIEW OF SYSTEMS: A 10-point review of systems is negative except for the history of chief complaint. PHYSICAL EXAMINATION: GENERAL: She is alert and oriented in no acute distress. VITAL SIGNS: Blood pressure is 110/70, pulse is irregular at 80 beats per minute. She is afebrile. HEAD, EYES, EARS, NOSE, AND THROAT: She wears corrective lenses. Mucous membranes are moist. She is normocephalic. NECK: The neck veins are flat. Carotids have good upstrokes bilaterally without bruits. Thyroid is nonpalpable. RESPIRATORY: Breath sounds equal bilaterally and clear to auscultation. CARDIOVASCULAR: Heart has an irregular rhythm. Normal S1, S2, no S3, S4. She has a recent open heart surgery scar on her chest. LUNGS: Are clear to auscultation bilaterally. GASTROINTESTINAL: Abdomen is soft, nontender without organomegaly. EXTREMITIES: Free of edema, digit clubbing, or cyanosis. NEUROLOGIC: Grossly intact. SKIN: Warm to touch. LYMPH NODES: Negative to palpation. IMPRESSION: 1. A congenital bicuspid aortic valve with severe aortic stenosis and an aneurysm of the aortic root and ascending aorta status post aortic valve replacement with a bioprosthesis and repair of the aorta May 2016 [facility]. 2. Atrial fibrillation and rapid ventricular response, which is most likely postop complication. 3. History of depression. 4. History of hypertension. RECOMMENDATIONS: The patient was not started on amiodarone postop. I think she would benefit from being started on amiodarone today for better heart rate control as well as when she goes back into sinus rhythm either on her own or by cardioversion. She will stay on the amiodarone at least for a brief time. I would plan on echocardiogram. I would continue the IV heparin at this time.
[2016-06-14] MEDS ORDERED: AMIODARONE / D5W 200 ML IV ONE (17:00)
[2016-06-14] MEDS: HEPARIN 25,000 UNIT/500ML D5W 500 ML IV PRN (17:08)
[2016-06-14 17:14] LABS: MAGNESIUM 2.5 mg/dl (1.8-2.4); THYROID STIMULATING HORMONE 0.913 uIu/ml (0.300-4.500)
--- NOTE | 2016-06-14 19:22 | History and Physical ---
History & Physical Date & Time of Service: Jun 14, 2016 ~ 16:00 Chief Complaint: Palpitations, Shortness of Breath Primary Care Physician: Dr. Garcia History of Present Illness 55 year old female who presents to the ER with palpitations and shortness of breath. Patient recently underwent aortic valve replacement with bioprosthetic valve and ascending aortic aneurysm repair with grafting on 05/29 at [facility] [place]. Patient reports she had been feeling well since her surgery however over the past few days has noted increasing weakness, shortness of breath, and palpitations. Patient denies chest pain or pressure. She reports shortness of breath at rest as well as with exertion. She denies lower extremity edema. No lightheadedness, dizziness, diaphoresis, or syncopal events. She denies abdominal pain, nausea, vomiting, and diarrhea. No fever or chills. She denies urinary symptoms. In the ER, patient is found to be in afib with RVR with rates in the 130s. She was given Cardizem 25mg IV bolus followed by a drip. Rates improved to the 90s. Patient's symptoms have improved as well. Labs are unremarkable. Past Medical/Surgical History Medical Problems: (1) Ascending aortic aneurysm Status: Chronic (2) Bicuspid aortic valve Status: Chronic (3) Depression Status: Chronic (4) GERD (gastroesophageal reflux disease) Status: Chronic (5) Herpes zoster Status: Chronic (6) HTN (hypertension) Status: Chronic Surgical Problems: (1) H/O tubal ligation Status: Chronic (2) S/P ascending aortic aneurysm repair Status: Chronic (3) S/P AVR (aortic valve replacement) Status: Chronic Social History Smoking Status: Never Smoker Alcohol Use: none Drug Use: none Immunizations History of Tetanus Vaccine?: Yes Tetanus Immunization Date: Oct 02, 2007 Multi-Drug Resistant Organisms History of MDRO: Yes Type of MDRO: MRSA Allergies Coded Allergies: Penicillins (Verified Allergy, Mild, rash, 06/14/16) Home Medications Scheduled Acyclovir (Acyclovir), 1 TAB PO BID Amitriptyline Hcl (Elavil), 50 MG PO HS Aspirin (Aspirin Ec), 81 MG PO QAM Carvedilol (Carvedilol), 3.125 MG PO BID Escitalopram Oxalate (Lexapro), 20 MG PO QAM Furosemide (Lasix), 40 MG PO DAILY Multivit/Min/Iron/Fol Ac/Pren ( Vitamin), 1 TAB PO DAILY Potassium Chloride Microencaps (Potassium Chloride Er), 10 MEQ PO DAILY Ranitidine Hcl (Zantac), 150 MG PO BID Scheduled PRN Oxycodone Ir (Roxicodone Ir), 5 MG PO Q4H PRN for Severe Pain Sumatriptan Succinate (Imitrex), 50 MG PO DIRECTED PRN for Migraine Review of Systems 10 point review of systems was completed with the pertinent positives and negatives noted per the HPI Physical Exam Vital Signs Date Time Temp Pulse Resp B/P Pulse Ox O2 Delivery O2 Flow Rate FiO2 06/14/16 17:30 106 20 117/73 96 06/14/16 17:00 106 20 117/73 96 Room Air 06/14/16 15:15 93 20 123/64 97 Room Air 06/14/16 14:45 125 22 113/78 95 Room Air 06/14/16 14:34 94 Room Air 06/14/16 14:08 137 06/14/16 13:57 36.6 138 18 90/54 98 Room Air General Appearance: no apparent distress Head: normocephalic Eyes: normal inspection ENT: hearing grossly normal Neck: supple, no JVD Respiratory/Chest: lungs clear, normal breath sounds, no respiratory distress Cardiovascular: no edema, + irregularly irregular (rate controlled) Abdomen/GI: normal bowel sounds, non tender, soft Extremities/Musculoskelatal: normal inspection, no calf tenderness Neurologic/Psych: no motor/sensory deficits, alert, normal mood/affect, oriented x 3 Skin: normal color, warm/dry Diagnostics Laboratory Results Results Past 24 Hours Test 06/14/16 14:20 06/14/16 14:23 06/14/16 14:27 Range/Units White Blood Count 9.57 4.8-10.8 K/uL Red Blood Count 4.01 4.2-5.4 M/uL Hemoglobin 12.8 12.0-16.0 g/dL Hematocrit 37.8 37-47 % Mean Corpuscular Volume 94.3 80-100 fL Mean Corpuscular Hemoglobin 31.9 25-34 pg Mean Corpuscular Hemoglobin Concent 33.9 32-36 g/dl Platelet Count 583 130-400 K/uL Mean Platelet Volume 9.5 7.4-10.4 fL Neutrophils (%) (Auto) 58.7 % Lymphocytes (%) (Auto) 28.8 % Monocytes (%) (Auto) 8.8 % Eosinophils (%) (Auto) 2.2 % Basophils (%) (Auto) 1.1 % Neutrophils # (Auto) 5.61 1.4-6.5 K/uL Lymphocytes # (Auto) 2.76 1.2-3.4 K/uL Monocytes # (Auto) 0.84 0.11-0.59 K/uL Eosinophils # (Auto) 0.21 0-0.5 K/uL Basophils # (Auto) 0.11 0-0.2 K/uL RDW Standard Deviation 45.2 36.4-46.3 fL RDW Coefficient of Variation 13.1 11.5-14.5 % Immature Granulocyte % (Auto) 0.4 % Immature Granulocyte # (Auto) 0.04 0.00-0.02 K/uL Prothrombin Time 10.6 9.0-12.0 SECONDS Prothromb Time International Ratio 1.0 0.9-1.1 Activated Partial Thromboplast Time 25.4 21.0-31.0 SECONDS Partial Thromboplastin Ratio 1.0 Sodium Level 138 136-145 mmol/L Potassium Level 4.2 3.5-5.1 mmol/L Chloride Level 103 98-107 mmol/L Carbon Dioxide Level 25 21-32 mmol/L Anion Gap 10.0 18.0 16-25 mmol/L Blood Urea Nitrogen 12 7-18 mg/dl Creatinine 0.72 0.60-1.20 mg/dl Est Creatinine Clear Calc Drug Dose 107.2 ml/min Estimated GFR () 108.5 Estimated GFR (Non- 93.6 BUN/Creatinine Ratio 16.4 10-20 Random Glucose 105 70-99 mg/dl Calcium Level 8.9 8.5-10.1 mg/dl Magnesium Level 2.5 1.8-2.4 mg/dl Total Bilirubin 0.4 0.2-1 mg/dl Aspartate Amino Transf (AST/SGOT) 35 15-37 U/L Alanine Aminotransferase (ALT/SGPT) 62 12-78 U/L Alkaline Phosphatase 119 45-117 U/L Total Creatine Kinase 35 26-192 U/L Creatine Kinase MB 0.7 0.5-3.6 ng/ml Creatine Kinase MB Ratio 2.0 0-3.0 Troponin I < 0.015 0-0.045 ng/ml Total Protein 7.5 6.4-8.2 gm/dl Albumin 3.3 3.4-5.0 gm/dl Globulin 4.2 2.5-4.0 gm/dl Albumin/Globulin Ratio 0.8 0.9-2 Thyroid Stimulating Hormone (TSH) 0.913 0.300-4.500 uIu/ml Bedside Hemoglobin 12.9 12.0-16.0 g/dl Bedside Hematocrit 38 37-47 % Bedside Sodium 137 135-144 mEq/L Bedside Potassium 4.2 3.3-5.0 mEq/L Bedside Chloride 101 101-112 mEq/L Bedside Total CO2 23 24-31 mEq/l Bedside Blood Urea Nitrogen 11 7-18 mg/dl Bedside Creatinine 0.6 0.6-1.3 mg/dl Bedside Glucose (other) 103 70-99 mg/dl Bedside Ionized Calcium (Kamilah) 1.18 1.12-1.32 mmol/l Bedside Lactic Acid Venous 1.20 0.90-1.70 mmol/L Microbiology Results 06/14/16 Blood Culture, Received Pending 06/14/16 Blood Culture, Received Pending Diagnostic Radiology CXR IMPRESSION: Slight haziness at the left lung base, likely secondary to overlying soft tissues. No evidence of failure. No evidence of lobar consolidation CTA CHEST IMPRESSION: 1. There is no evidence of pulmonary embolus in the main, lobar, or segmental pulmonary arteries. 2. Cardiomegaly and small pericardial effusion. 3. There is presternal soft tissue induration, possibly related to recent surgery/sternotomy. Clinical correlation will be required. 4. Trace pleural effusions. There is no airspace consolidation seen typical for pneumonia. 5. Emphysema. 6. There are small pulmonary nodules (at least 5) measuring up to 5 mm. These can be followed as per the Fleischner criteria. 7. The thyroid gland is enlarged, heterogeneous, and multinodular. Follow-up with a nonemergent thyroid ultrasound is recommended. 8. Suspect hepatic steatosis. 9. Additional findings as above. Impression Assessment and Plan NEW ONSET ATRIAL FIBRILLATION WITH RVR HX AV REPLACEMENT, ASCENDING AORTIC ANEURYSM REPAIR - admit to tele - patient presenting with increasing generalized weakness, shortness of breath, and palpitations; found to be in afib with RVR with rates in the 130s - had bioprosthetic aortic valve replacement and ascending aortic aneurysm repair on 05/29 for bicuspid aortic valve and aortic stenosis - s/p Cardizem 25mg IV bolus, followed by drip with improvement in rates - suspect due to recent aortic valve replacement - electrolytes and TSH WNL, no infectious source noted - initial troponin negative, will continue to trend; check resting echo - BP low on presentation however improved with HR control - will start IV heparin - patient was started on Lasix post op - will continue - case discussed with Dr. Leslie - will stop IV cardizem and transition to IV amiodarone PROLONGED QTC - noted to be 502 - will hold amitriptyline and escitalopram - check daily EKG - avoid QTC prolonging agents when able HTN - BP controlled - holding carvedilol for now while on amio drip DEPRESSION - holding amitriptyline and escitalopram due to prolonged QTC MULTINODULAR THYROID - noted on CTA chest - will need thyroid US for follow up 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 - outpatient followup DVT PROPHYLAXIS - on heparin drip DISPO - In my clinical judgment this beneficiary meets acute admission criteria, established by CMS, that includes being hospitalized through two midnights. I have seen and examined the patient and discussed the case with the provider above. I agree with the assessment and plan as stated. [place], DO Level of Care Telemetry Resuscitation Status FULL RESUSCITATION VTE Prophylaxis VTE Risk Assessment Done? Y/N: Yes Risk Level: Moderate Given or contraindicated: Other Anticoagulation (heparin drip)
[2016-06-14] MEDS ORDERED: DILTIAZEM HCL 5 MG/ML 5 ML VIAL IV SCH (20:00)
[2016-06-14] MEDS ORDERED: OXYCODONE/ACETAMINOPHEN 10/325MG TAB PO ONE (20:00)
[2016-06-14] MEDS: RANITIDINE HCL 150 MG TAB PO SCH (20:17)
[2016-06-14] MEDS: ACYCLOVIR 400 MG TAB PO SCH (20:19)
[2016-06-14 21:35] LABS: URINE APPEARANCE CLEAR (CLEAR); URINE BILIRUBIN NEG (NEG); URINE COLOR YELLOW; URINE NITRITE NEG (NEG); URINE SPECIFIC GRAVITY > 1.045 (1.000-1.030); UROBILINOGEN NEG (NEG)
[2016-06-14 21:39] LABS: MANUAL MICROSCOPIC REQUIRED? NO; REVIEW REQ? NO
[2016-06-14] MEDS ORDERED: AMIODARONE / D5W 200 ML IV SCH (23:00)
[2016-06-14 23:17] LABS: PARTIAL THROMBOPLASTIN RATIO 1.8
[2016-06-15] VITALS (9 sets, daily range): BP systolic 106–139; BP diastolic 62–84; PULSE 68–94; TEMP 36.4–36.8; O2SAT 91–98
[2016-06-15] MEDS ORDERED: HEPARIN IV BOLUS 3,000 UNIT in SYRINGE 0 ML IV STA (00:02)
[2016-06-15] MEDS: HEPARIN 25,000 UNIT/500ML D5W 500 ML IV PRN ×2 (00:36→04:33)
[2016-06-15] MEDS: OXYCODONE HCL IR 5 MG TAB (IMMEDIATE RELEASE) PO PRN ×2 (04:42→19:44)
[2016-06-15 06:05] LABS: HEMATOCRIT 36.1 % (37-47); MEAN CELL VOLUME 96.5 fL (80-100); MEAN CORPUSCULAR HEMOGLOBIN 30.5 pg (25-34); MEAN CORPUSCULAR HGB CONC 31.6 g/dl (32-36); MEAN PLATELET VOLUME 9.4 fL (7.4-10.4); PLATELET COUNT 467 K/uL (130-400); RED BLOOD COUNT 3.74 M/uL (4.2-5.4); WHITE BLOOD COUNT 8.46 K/uL (4.8-10.8)
[2016-06-15 06:21] LABS: PARTIAL THROMBOPLASTIN RATIO 2.1
[2016-06-15 06:35] LABS: BUN/CREATININE RATIO 14.4 (10-20); CALCIUM 8.8 mg/dl (8.5-10.1); CREATININE 0.7 mg/dl (0.60-1.20); POTASSIUM 3.8 mmol/L (3.5-5.1)
--- NOTE | 2016-06-15 08:01 | Clinical Documentation Query ---
Dr. JERON[facility] [place] : CLINICAL DOCUMENTATION QUERY Patient is a 55 year old female who recently underwent AVR with ascending TAA repair on 05/29 at [facility] [place]. She presented with SOB, weakness, and palpitations, subsequently determined to be in new onset atrial fibrillation with RVR. Documentation states that arrhythmia is suspected to be due to recent AVR. As appropriate, please explicitly clarify as suggested below so as to avoid audio tape librarian uncertainty at time of discharge. Thank you. In your clinical opinion is this patient being managed for: ( ) Postoperative atrial fibrillation, a complication of care ( + ) Postoperative atrial fibrillation, expected ( ) Other explanation of clinical findings (Please Explain) ( ) Unable to determine (Please Define) ( ) Need to Discuss ( ) Not Agree The medical record reflects the following clinical findings, treatment, and risk factors. Clinical Indicators: As above Treatment: Telemetry, cardiology consultation, Cardizem infusion, serial chemistries, echocardiogram, IV Heparin. Risk Factors: Recent AVR and ascending TAA repair. Please clarify and document your clinical opinion in the progress notes and discharge summary. Terms such as "probable", "suspected", "likely", "questionable", "possible", or "still to be ruled out" are acceptable. IF IN AGREEMENT, YOU MUST DOCUMENT ABOVE DIAGNOSTIC STATEMENT IN DAILY PROGRESS NOTES AND DISCHARGE SUMMARY. This document is not part of the patient's record. Thank You, Ha Vance, DEEDEE [phone]
[2016-06-15] MEDS ORDERED: PERFLUTREN LIPID MICROSPHERE (DEFINITY) IV ONE (08:04)
[2016-06-15] MEDS: RANITIDINE HCL 150 MG TAB PO SCH ×2 (08:27→21:13)
[2016-06-15] MEDS: ACYCLOVIR 400 MG TAB PO SCH ×2 (08:27→21:13)
[2016-06-15] MEDS: PRENATAL VITAMIN TAB PO SCH (08:28)
[2016-06-15] MEDS: ASPIRIN 81 MG ECTAB PO SCH (08:28)
[2016-06-15] MEDS: FUROSEMIDE 40 MG TAB PO SCH (08:28)
[2016-06-15] MEDS: POTASSIUM CHLORIDE 10 MEQ TABCR PO SCH (08:28)
--- NOTE | 2016-06-15 10:31 | CARDIOLOGY PROGRESS NOTE ---
DATE: 06/15/2016 DATE: 06/15/2016. FOLLOW-UP VISIT SUBJECTIVE: The patient is a 55-year-old female who recently underwent an aortic valve replacement for aortic stenosis from a congenital bicuspid aortic valve along with an aortic root and ascending aorta repair. The patient did well postop and then presented with new onset atrial fibrillation with RVR. She had an uneventful night. Her rates have been controlled with diltiazem and IV amiodarone. OBJECTIVE: GENERAL: She is alert and oriented. VITAL SIGNS: Blood pressure 120/60, pulse is irregular at 76. She is afebrile. HEAD, EYES, EARS, NOSE, AND THROAT: She is normocephalic. She wears corrective lenses. Mucous membranes are moist. NECK: The neck veins are flat. Carotids have good upstrokes bilaterally without bruits. Thyroid is nonpalpable. RESPIRATORY: Breath sounds equal bilaterally and clear to auscultation. CARDIOVASCULAR: Heart has irregular rhythm. Normal S1, S2. No S3, S4. No cardiac rubs or murmurs. GASTROINTESTINAL: Abdomen is soft, nontender without organomegaly. EXTREMITIES: Free of edema, digit clubbing, or cyanosis. NEUROLOGIC: Grossly intact. SKIN: Warm to touch. LYMPH NODES: Negative to palpation. LABORATORY DATA: Hemoglobin is 11.4, WBC count is 8.46, potassium is 3.8. Creatinine is 0.70. IMPRESSION: 1. Persistent atrial fibrillation. 2. Recent open heart surgery with aortic valve replacement and root repair. RECOMMENDATIONS: Today, she will be switched over to oral amiodarone to continue her load. I will restart her home carvedilol will at a higher dose with the hope of weaning her off of the diltiazem. She will also be started on Coumadin today.
[2016-06-15] MEDS ORDERED: CARVEDILOL 6.25 MG TAB PO ONE (11:00)
[2016-06-15 11:02] LABS: INR 1.1 (0.9-1.1); PROTHROMBIN TIME (PATIENT) 11.4 SECONDS (9.0-12.0)
[2016-06-15] MEDS: AMIODARONE 200 MG TAB PO SCH ×2 (11:14→15:47)
--- NOTE | 2016-06-15 11:31 | ECHOCARDIOGRAM REPORT ---
*NOTICE TO RECEIVING REPUBLICAN AGENCY This information is strictly Confidential and protected under [place] law. [place] law prohibits you from making any further disclosure of this information unless further disclosure is expressly permitted by the written consent of the person to whom it pertains or is authorized by law. A general authorization for the release of medical or other information is not sufficient for this purpose. Hospital accepts no responsibility if the information is made available to any other person, INCLUDING THE PATIENT. Interpretation Summary * Name: SOL WOOD Study Date: 06/15/2016 07:43 AM BP: 118/78 mmHg * Patient Location: C.2T\S\E220\S\1 HR: 94 * : 1960 (M/d/yyyy) Gender: Female Height: 67 in * Age: 55 yrs Ethnicity: CA Weight: 225 lb * Ordering Physician: Aydee Jordan * Referring Physician: Self, Referred * Performed By: Eveline Quarles RCS * * Reason For Study: A-FIB * BSA: 2.1 m2 * The study was technically limited. * -- Conclusions -- * The study was technically limited. * There is a bioprosthetic aortic valve. * The prosthetic aortic valve is not well visualized. * The prosthetic aortic valve is well-seated. * No hemodynamically significant valvular aortic stenosis. * There is no significant aortic regurgitation. * Ejection Fraction = 55-60%. Procedure Details * A complete two-dimensional transthoracic echocardiogram was performed (2D, M-mode, Doppler and color flow Doppler). * The study was technically difficult. * A contrast injection of Definity was performed to improve assessment of LV function. * Contrast was injected into an intravenous site in the right arm. * One vial of Definity ultrasound contrast was diluted in normal saline to a total volume of 10 ml. A total of '2' ml of solution was administered during imaging. * Lot # [id number] of Definity utilized for procedure. * Expiration date . Left Ventricle * The left ventricle is grossly normal size. * Ejection Fraction = 55-60%. * Left ventricular systolic function is normal. Right Ventricle * The right ventricle is grossly normal size. * The right ventricular systolic function is normal. Atria * The left atrial size is normal. * Right atrial size is normal. Mitral Valve * The mitral valve is normal in structure and function. Tricuspid Valve * The tricuspid valve is not well visualized. * The tricuspid valve is not well visualized, but is grossly normal. Aortic Valve * No hemodynamically significant valvular aortic stenosis. * There is no significant aortic regurgitation. * There is a bioprosthetic aortic valve. * The prosthetic aortic valve is not well visualized. * The prosthetic aortic valve is well-seated. Great Vessels * The aortic root and proximal ascending aorta are normal sized. Pericardium/Pleural * There is no pericardial effusion. MMode 2D Measurements and Calculations IVSd 1.1 cm IVSs 1.3 cm LVIDd 5.8 cm LVIDs 4.5 cm LVPWd 1.1 cm LVPWs 1.3 cm IVS/LVPW 1.0 FS 22.3 % EDV(Teich) 166.7 ml ESV(Teich) 92.8 ml EF(Teich) 44.3 % EDV(cubed) 195.3 ml ESV(cubed) 91.5 ml EF(cubed) 53.1 % % IVS thick 11.4 % % LVPW thick 13.6 % LV mass(C)d 276.5 grams LV mass(C)dI 130.1 grams/m\S\2 LV mass(C)s 218.1 grams LV mass(C)sI 102.6 grams/m\S\2 CO(Teich) 7.5 l/min CI(Teich) 3.5 l/min/m\S\2 SV(Teich) 73.9 ml SI(Teich) 34.8 ml/m\S\2 CO(cubed) 10.6 l/min CI(cubed) 5.0 l/min/m\S\2 SV(cubed) 103.7 ml SI(cubed) 48.8 ml/m\S\2 Ao root diam 3.1 cm Ao root area 7.8 cm\S\2 LA dimension 3.7 cm LA/Ao 1.2 LVAd ap4 44.0 cm\S\2 LVLd ap4 9.0 cm EDV(MOD-sp4) 174.0 ml LVAs ap4 29.0 cm\S\2 LVLs ap4 6.7 cm ESV(MOD-sp4) 103.0 ml EF(MOD-sp4) 40.8 % LVAd ap2 35.3 cm\S\2 LVLd ap2 8.8 cm EDV(MOD-sp2) 118.0 ml LVAs ap2 26.3 cm\S\2 LVLs ap2 8.0 cm ESV(MOD-sp2) 70.0 ml EF(MOD-sp2) 40.7 % CO(MOD-sp4) 7.2 l/min CI(MOD-sp4) 3.4 l/min/m\S\2 SV(MOD-sp4) 71.0 ml SI(MOD-sp4) 33.4 ml/m\S\2 CO(MOD-sp2) 4.9 l/min CI(MOD-sp2) 2.3 l/min/m\S\2 SV(MOD-sp2) 48.0 ml SI(MOD-sp2) 22.6 ml/m\S\2 Doppler Measurements and Calculations MV E max roberth 155.6 cm/sec MV A max roberth 41.1 cm/sec MV E/A 3.8 MV P1/2t max roberth 224.9 cm/sec MV P1/2t 95.9 msec MVA(P1/2t) 2.3 cm\S\2 MV dec slope 686.9 cm/sec\S\2 MV dec time 0.25 sec Ao V2 max 238.9 cm/sec Ao max PG 22.8 mmHg Ao max PG (full) 18.2 mmHg Ao V2 mean 151.0 cm/sec Ao mean PG 10.9 mmHg Ao mean PG (full) 8.7 mmHg Ao V2 VTI 43.6 cm LV V1 max PG 4.7 mmHg LV V1 mean PG 2.2 mmHg LV V1 max 108.0 cm/sec LV V1 mean 68.3 cm/sec LV V1 VTI 18.5 cm SV(Ao) 339.6 ml SI(Ao) 159.7 ml/m\S\2 PA V2 max 61.1 cm/sec PA max PG 1.5 mmHg TR max roberth 198.2 cm/sec
--- NOTE | 2016-06-15 11:52 | Progress Note ---
Internal Med Progress Note Date of Service: Jun 15, 2016. Provider Documentation: SUBJECTIVE: The patient was seen and examined Feels much better Denies any more palpitation No Chest pain or SOB OBJECTIVE: Vital Signs-as noted below Exam: General-no distress at rest Eyes-normal ENT-normal Neck-Supple Lungs-Decreased breath sound bilaterally Minimal crackles at the bases Heart-Regular,2/6 ESM aortic area Abdomen-Benign,no masses,bowel sound present Extremities-Trace edema bilaterally Neuro-AAOx3 Lab data as noted below. ASSESSMENT & PLAN: NEW ONSET ATRIAL FIBRILLATION WITH RVR:S/P AVR -bioprosthetic Postoperative atrial fibrillation, expected - patient presenting with increasing generalized weakness, shortness of breath, and palpitations; found to be in afib with RVR with rates in the 130s - had bioprosthetic aortic valve replacement and ascending aortic aneurysm repair on 05/29 for bicuspid aortic valve and aortic stenosis -Started on IV Heparin ,IV Cardizem and IV Amiodarone - electrolytes and TSH WNL -Appreciate Cardiology input -Wean Off Cardizem,transition to oral Amio and OP Carvedilol started -Coumadin started as well -ECHO;The study was technically limited. * There is a bioprosthetic aortic valve. * The prosthetic aortic valve is not well visualized. * The prosthetic aortic valve is well-seated. * No hemodynamically significant valvular aortic stenosis. * There is no significant aortic regurgitation. * Ejection Fraction = 55-60%. -Reverted to SR HTN - BP controlled - Carvedilol restarted MULTINODULAR THYROID - noted on CTA chest - will need thyroid US for follow up PROLONGED QTC - noted to be 502 - will hold amitriptyline and escitalopram - check daily EKG - avoid QTC prolonging agents when able DEPRESSION - holding amitriptyline and escitalopram due to prolonged QTC 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 - outpatient followup DVT PROPHYLAXIS - on heparin drip -oral Coumadin started DISPO Awaited Vital Signs: Date Time Temp Pulse Resp B/P Pulse Ox O2 Delivery O2 Flow Rate FiO2 06/15/16 11:20 36.8 86 20 106/73 95 06/15/16 08:00 95 Room Air 06/15/16 07:47 36.7 76 18 124/62 95 06/15/16 04:36 36.5 94 20 118/78 98 Room Air 06/15/16 04:00 Room Air 06/14/16 23:59 96 Room Air 06/14/16 23:49 36.6 96 20 103/72 96 Room Air 06/14/16 21:20 109 105/62 06/14/16 20:30 107 112/72 06/14/16 20:00 96 Room Air 06/14/16 19:23 36.7 125 18 93/64 96 Room Air 06/14/16 17:45 36.5 109 20 118/83 99 Room Air 06/14/16 17:30 106 20 117/73 96 06/14/16 17:00 106 20 117/73 96 Room Air 06/14/16 15:15 93 20 123/64 97 Room Air 06/14/16 14:45 125 22 113/78 95 Room Air 06/14/16 14:34 94 Room Air 06/14/16 14:08 137 06/14/16 13:57 36.6 138 18 90/54 98 Room Air Lab Results: Results Past 24 Hours Test 06/14/16 14:20 06/14/16 14:23 06/14/16 14:27 06/14/16 20:00 Range/Units White Blood Count 9.57 4.8-10.8 K/uL Red Blood Count 4.01 4.2-5.4 M/uL Hemoglobin 12.8 12.0-16.0 g/dL Hematocrit 37.8 37-47 % Mean Corpuscular Volume 94.3 80-100 fL Mean Corpuscular Hemoglobin 31.9 25-34 pg Mean Corpuscular Hemoglobin Concent 33.9 32-36 g/dl Platelet Count 583 130-400 K/uL Mean Platelet Volume 9.5 7.4-10.4 fL Neutrophils (%) (Auto) 58.7 % Lymphocytes (%) (Auto) 28.8 % Monocytes (%) (Auto) 8.8 % Eosinophils (%) (Auto) 2.2 % Basophils (%) (Auto) 1.1 % Neutrophils # (Auto) 5.61 1.4-6.5 K/uL Lymphocytes # (Auto) 2.76 1.2-3.4 K/uL Monocytes # (Auto) 0.84 0.11-0.59 K/uL Eosinophils # (Auto) 0.21 0-0.5 K/uL Basophils # (Auto) 0.11 0-0.2 K/uL RDW Standard Deviation 45.2 36.4-46.3 fL RDW Coefficient of Variation 13.1 11.5-14.5 % Immature Granulocyte % (Auto) 0.4 % Immature Granulocyte # (Auto) 0.04 0.00-0.02 K/uL Prothrombin Time 10.6 9.0-12.0 SECONDS Prothromb Time International Ratio 1.0 0.9-1.1 Activated Partial Thromboplast Time 25.4 21.0-31.0 SECONDS Partial Thromboplastin Ratio 1.0 Sodium Level 138 136-145 mmol/L Potassium Level 4.2 3.5-5.1 mmol/L Chloride Level 103 98-107 mmol/L Carbon Dioxide Level 25 21-32 mmol/L Anion Gap 10.0 18.0 16-25 mmol/L Blood Urea Nitrogen 12 7-18 mg/dl Creatinine 0.72 0.60-1.20 mg/dl Est Creatinine Clear Calc Drug Dose 107.2 ml/min Estimated GFR () 108.5 Estimated GFR (Non- 93.6 BUN/Creatinine Ratio 16.4 10-20 Random Glucose 105 70-99 mg/dl Calcium Level 8.9 8.5-10.1 mg/dl Magnesium Level 2.5 1.8-2.4 mg/dl Total Bilirubin 0.4 0.2-1 mg/dl Aspartate Amino Transf (AST/SGOT) 35 15-37 U/L Alanine Aminotransferase (ALT/SGPT) 62 12-78 U/L Alkaline Phosphatase 119 45-117 U/L Total Creatine Kinase 35 26-192 U/L Creatine Kinase MB 0.7 0.5-3.6 ng/ml Creatine Kinase MB Ratio 2.0 0-3.0 Troponin I < 0.015 0-0.045 ng/ml Total Protein 7.5 6.4-8.2 gm/dl Albumin 3.3 3.4-5.0 gm/dl Globulin 4.2 2.5-4.0 gm/dl Albumin/Globulin Ratio 0.8 0.9-2 Thyroid Stimulating Hormone (TSH) 0.913 0.300-4.500 uIu/ml Hepatitis C Antibody Screen NEG NEG Bedside Hemoglobin 12.9 12.0-16.0 g/dl Bedside Hematocrit 38 37-47 % Bedside Sodium 137 135-144 mEq/L Bedside Potassium 4.2 3.3-5.0 mEq/L Bedside Chloride 101 101-112 mEq/L Bedside Total CO2 23 24-31 mEq/l Bedside Blood Urea Nitrogen 11 7-18 mg/dl Bedside Creatinine 0.6 0.6-1.3 mg/dl Bedside Glucose (other) 103 70-99 mg/dl Bedside Ionized Calcium ([place]) 1.18 1.12-1.32 mmol/l Bedside Lactic Acid Venous 1.20 0.90-1.70 mmol/L Test 06/14/16 20:08 06/14/16 21:00 06/14/16 22:50 06/15/16 02:00 Range/Units Creatine Kinase MB < 0.5 0.5-3.6 ng/ml Troponin I 0.017 0-0.045 ng/ml Urine Color YELLOW Urine Appearance CLEAR CLEAR Urine pH 5.0 4.5-7.5 Urine Specific [place]ad[place] > 1.045 1.000-1.030 Urine Protein NEG NEG Urine Glucose (UA) NEG NEG Urine Ketones NEG NEG Urine Occult Blood NEG NEG Urine Nitrite NEG NEG Urine Bilirubin NEG NEG Urine Urobilinogen NEG NEG Urine Leukocyte Esterase NEG NEG Activated Partial Thromboplast Time 46.6 21.0-31.0 SECONDS Partial Thromboplastin Ratio 1.8 Creatine Kinase MB Ratio 0-3.0 Test 06/15/16 02:20 06/15/16 05:51 Range/Units Creatine Kinase MB 0.8 0.5-3.6 ng/ml Troponin I < 0.015 0-0.045 ng/ml White Blood Count 8.46 4.8-10.8 K/uL Red Blood Count 3.74 4.2-5.4 M/uL Hemoglobin 11.4 12.0-16.0 g/dL Hematocrit 36.1 37-47 % Mean Corpuscular Volume 96.5 80-100 fL Mean Corpuscular Hemoglobin 30.5 25-34 pg Mean Corpuscular Hemoglobin Concent 31.6 32-36 g/dl RDW Standard Deviation 46.5 36.4-46.3 fL RDW Coefficient of Variation 13.1 11.5-14.5 % Platelet Count 467 130-400 K/uL Mean Platelet Volume 9.4 7.4-10.4 fL Prothrombin Time 11.4 9.0-12.0 SECONDS Prothromb Time International Ratio 1.1 0.9-1.1 Activated Partial Thromboplast Time 54.1 21.0-31.0 SECONDS Partial Thromboplastin Ratio 2.1 Sodium Level 138 136-145 mmol/L Potassium Level 3.8 3.5-5.1 mmol/L Chloride Level 102 98-107 mmol/L Carbon Dioxide Level 28 21-32 mmol/L Anion Gap 8.0 3-11 mmol/L Blood Urea Nitrogen 10 7-18 mg/dl Creatinine 0.70 0.60-1.20 mg/dl Est Creatinine Clear Calc Drug Dose 110.6 ml/min Estimated GFR () 112.3 Estimated GFR (Non- 96.9 BUN/Creatinine Ratio 14.4 10-20 Random Glucose 135 70-99 mg/dl Calcium Level 8.8 8.5-10.1 mg/dl Microbiology Results 06/14/16 Blood Culture, Received Pending 06/14/16 Blood Culture, Received Pending 06/14/16 Urine Culture, Received Pending
[2016-06-15] MEDS: WARFARIN SOD 10 MG TAB PO SCH (15:47)
[2016-06-15] MEDS ORDERED: LORAZEPAM 0.5 MG TAB PO STA (17:50)
[2016-06-15] MEDS ORDERED: ESCITALOPRAM OXALATE 10 MG TAB PO ONE (19:00)
[2016-06-15] MEDS ORDERED: LORAZEPAM INJ 0.5 MG in SYRINGE 0.75 ML IV PRN (20:45)
[2016-06-15] MEDS: LORAZEPAM 2 MG/ML 1 ML VIAL IV PRN (21:12)
[2016-06-15] MEDS: CARVEDILOL 6.25 MG TAB PO SCH (21:12)
[2016-06-15] MEDS: AMITRIPTYLINE HCL 50 MG TAB PO SCH (21:13)
[2016-06-15] MEDS: OXYCODONE/ACETAMINOPHEN 5-325 TAB PO PRN (21:13)
[2016-06-16] VITALS (10 sets, daily range): BP systolic 103–131; BP diastolic 58–80; PULSE 67–75; TEMP 36.4–36.9; O2SAT 93–97
[2016-06-16 05:21] LABS: HEMATOCRIT 33.8 % (37-47); MEAN CORPUSCULAR HGB CONC 32.2 g/dl (32-36); MEAN PLATELET VOLUME 9.2 fL (7.4-10.4); PLATELET COUNT 416 K/uL (130-400); RED BLOOD COUNT 3.52 M/uL (4.2-5.4); WHITE BLOOD COUNT 6.04 K/uL (4.8-10.8)
[2016-06-16 05:39] LABS: INR 1.1 (0.9-1.1); PARTIAL THROMBOPLASTIN RATIO 2.2; PROTHROMBIN TIME (PATIENT) 11.9 SECONDS (9.0-12.0)
[2016-06-16] MEDS: AMIODARONE 200 MG TAB PO SCH ×2 (08:38→11:14)
[2016-06-16] MEDS: CARVEDILOL 6.25 MG TAB PO SCH (08:39)
[2016-06-16] MEDS: ASPIRIN 81 MG ECTAB PO SCH (08:40)
[2016-06-16] MEDS: POTASSIUM CHLORIDE 10 MEQ TABCR PO SCH (08:40)
[2016-06-16] MEDS: PRENATAL VITAMIN TAB PO SCH (08:41)
[2016-06-16] MEDS: ESCITALOPRAM OXALATE 20 MG TAB PO SCH (08:41)
[2016-06-16] MEDS: FUROSEMIDE 40 MG TAB PO SCH (08:42)
[2016-06-16] MEDS: RANITIDINE HCL 150 MG TAB PO SCH ×2 (08:42→20:35)
[2016-06-16] MEDS: ACYCLOVIR 400 MG TAB PO SCH ×2 (08:42→20:34)
[2016-06-16] MEDS: OXYCODONE/ACETAMINOPHEN 5-325 TAB PO PRN ×3 (08:57→22:14)
--- NOTE | 2016-06-16 11:30 | Cardiology Follow-Up ---
Subjective General Date of Service: Jun 16, 2016. Chief Complaint: follow-up exertional shortness of breath, palpitations Pt evaluation today including: conversation w/ patient, physical exam History of Present Illness The patient is a 55 year old female seen in cardiology follow-up. The patient presented with shortness of breath and sensation of heart racing and was diagnosed with new onset atrial fibrillation. I had reviewed her recent discharge summary from [facility]. The patient had recently been hospitalized from 05/29/2016 until 06/03/2016 due to symptomatic bicuspid aortic valve stenosis and ascending thoracic aorta aortopathy, she underwent bioprosthetic aortic valve replacement and aortic root/ascending thoracic aorta repair on 05/29/16. The discharge summary specifically states that there was no postoperative atrial fibrillation observed. The patient was discharged on carvedilol 3.125 mg twice a day. Patient had subsequently presented to [facility] and for treatment of atrial fibrillation received IV diltiazem, oral carvedilol, and oral amiodarone was initiated. The patient was noted to of spontaneous he converted back to sinus rhythm yesterday afternoon on 06/15/16 at 1632 hrs. Repeat EKG performed this morning 06/16/16 revealed normal sinus rhythm at 72 bpm with first-degree AV block,KS interval of 2014 ms, interventricular conduction delay with QRS duration of 120 ms, and prolonged QT interval of 521 ms. Review of prior EKG tracings while in atrial fibrillation revealed that the QT interval was also mildly prolonged at just over 500 ms. Patient feels subjectively better now that she is in sinus rhythm. She remains on a heparin infusion. Her echocardiogram revealed no pericardial effusion with grossly normal LV wall motion, and person normal prosthetic valve function. The echocardiogram was technically limited some degree given the atrial fibrillation with rapid ventricular rate and poor acoustic windows. Allergies Coded Allergies: Penicillins (Verified Allergy, Mild, rash, 06/14/16) Social History Smoking Status: Never Smoker Hx Tobacco Use In Past Year?: No Hx Alcohol Use - Type And Amou: No Hx Substance Use - Type And Am: No Physical Exam Vital Signs Last Vital Signs Documentation Date Time Temp Pulse Resp B/P Pulse Ox O2 Delivery O2 Flow Rate FiO2 06/16/16 08:00 95 Room Air 06/16/16 07:43 36.8 75 22 103/65 Physical Exam Constitutional: Level of Distress: NAD ENMT: normal ENT inspection Neck: supple Lungs: Auscultation: CTA except as noted, no wheezing Cardiovascular: Heart Auscultation: RRR, no murmurs Extremities: no cyanosis, no edema Neurologic: Gait & Station: pertinent finding (no focal deficits) Assessment and Plan Assessment and Plan Impression: 55-year-old female 1. Newly diagnosed paroxysmal atrial fibrillation 2. Status post bioprosthetic aortic valve replacement, ascending thoracic aorta graft placement having had severe bicuspid aortic valve stenosis and ascending aortography 3. History of depression/anxiety 4. Prolonged QT interval Recommendations: The patient's medications were reviewed. She is chronically on amitriptyline as well as Lexapro. Both of these medications can cause QT prolongation, and when used in combination with amiodarone can cause additive effects of prolonged QT interval and therefore I'm concerned about the potential for pro- arhythmic effect. Would appear that she needs his long-term psychiatric medications. At this time I recommend discontinuation of oral amiodarone to see if we can maintain sinus rhythm without it. Carvedilol will also be discontinued. In full transitioned to metoprolol tartrate 50 mg twice a day. Continue heparin bridge to Coumadin. Patient lives a mile away from the [facility] and states that she can have anticoagulation clinic follow- up there. Patient is to remain on telemetry. Laboratory Results Last 24 Hours Test 06/16/16 04:58 06/16/16 11:08 White Blood Count 6.04 K/uL Red Blood Count 3.52 M/uL Hemoglobin 10.9 g/dL Hematocrit 33.8 % Mean Corpuscular Volume 96.0 fL Mean Corpuscular Hemoglobin 31.0 pg Mean Corpuscular Hemoglobin Concent 32.2 g/dl RDW Standard Deviation 45.9 fL RDW Coefficient of Variation 13.2 % Platelet Count 416 K/uL Mean Platelet Volume 9.2 fL Prothrombin Time 11.9 SECONDS Prothromb Time International Ratio 1.1 Activated Partial Thromboplast Time 56.4 SECONDS Partial Thromboplastin Ratio 2.2
[2016-06-16 12:07] LABS: BUN/CREATININE RATIO 12.7 (10-20); CALCIUM 9.1 mg/dl (8.5-10.1); CREATININE 0.71 mg/dl (0.60-1.20); MAGNESIUM 2.2 mg/dl (1.8-2.4); POTASSIUM 3.9 mmol/L (3.5-5.1)
--- NOTE | 2016-06-16 13:18 | Progress Note ---
Internal Med Progress Note Date of Service: Jun 16, 2016. Provider Documentation: SUBJECTIVE: The patient was seen and examined Feels much better today Denies any more palpitation No Chest pain or SOB Reverted to SR OBJECTIVE: Vital Signs-as noted below Exam: General-no distress at rest Eyes-normal ENT-normal Neck-Supple Lungs-Decreased breath sound bilaterally Minimal crackles at the bases Heart-Regular,2/6 ESM aortic area Abdomen-Benign,no masses,bowel sound present Extremities-Trace edema bilaterally Neuro-AAOx3 Lab data as noted below. ASSESSMENT & PLAN: NEW ONSET ATRIAL FIBRILLATION WITH RVR:S/P AVR -bioprosthetic Postoperative atrial fibrillation, expected - patient presenting with increasing generalized weakness, shortness of breath, and palpitations; found to be in afib with RVR with rates in the 130s - had bioprosthetic aortic valve replacement and ascending aortic aneurysm repair on 05/29 for bicuspid aortic valve and aortic stenosis -Started on IV Heparin ,IV Cardizem and IV Amiodarone - electrolytes and TSH WNL -Appreciate Cardiology input -Wean Off Cardizem,transition to oral Amio and OP Carvedilol started -Coumadin started as well -ECHO;The study was technically limited. * There is a bioprosthetic aortic valve. * The prosthetic aortic valve is not well visualized. * The prosthetic aortic valve is well-seated. * No hemodynamically significant valvular aortic stenosis. * There is no significant aortic regurgitation. * Ejection Fraction = 55-60%. -Reverted to SR -Medications reevaluated by the [employer] -Amiodarone and Carvedilol have been stopped -Started on BB -continue Coumadin HTN - BP controlled - Carvedilol restarted MULTINODULAR THYROID - noted on CTA chest - will need thyroid US for follow up PROLONGED QTC - noted to be 502 - will hold amitriptyline and escitalopram - check daily EKG - avoid QTC prolonging agents when able -Both amitriptyline and Lexapro can cause Prolong QT and can be accentuated by Amiodarone DEPRESSION Was on hold Restarted due to ongoing increasing psychiatric issue - 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 - outpatient followup DVT PROPHYLAXIS - on heparin drip -oral Coumadin started DISPO Awaited Vital Signs: Date Time Temp Pulse Resp B/P Pulse Ox O2 Delivery O2 Flow Rate FiO2 06/16/16 11:38 36.7 67 22 131/69 93 Room Air 06/16/16 08:00 95 Room Air 06/16/16 07:43 36.8 75 22 103/65 94 Room Air 06/16/16 04:02 Room Air 06/16/16 03:24 36.4 67 19 127/78 93 Room Air 06/16/16 00:02 Room Air 06/15/16 23:51 36.4 72 19 139/84 91 Room Air 06/15/16 20:00 Room Air 06/15/16 19:15 36.6 68 16 126/78 93 Room Air 06/15/16 16:00 97 Room Air 06/15/16 15:35 36.8 88 16 123/80 95 Room Air Lab Results: Results Past 24 Hours Test 06/16/16 04:58 Range/Units White Blood Count 6.04 4.8-10.8 K/uL Red Blood Count 3.52 4.2-5.4 M/uL Hemoglobin 10.9 12.0-16.0 g/dL Hematocrit 33.8 37-47 % Mean Corpuscular Volume 96.0 80-100 fL Mean Corpuscular Hemoglobin 31.0 25-34 pg Mean Corpuscular Hemoglobin Concent 32.2 32-36 g/dl RDW Standard Deviation 45.9 36.4-46.3 fL RDW Coefficient of Variation 13.2 11.5-14.5 % Platelet Count 416 130-400 K/uL Mean Platelet Volume 9.2 7.4-10.4 fL Prothrombin Time 11.9 9.0-12.0 SECONDS Prothromb Time International Ratio 1.1 0.9-1.1 Activated Partial Thromboplast Time 56.4 21.0-31.0 SECONDS Partial Thromboplastin Ratio 2.2 Sodium Level 140 136-145 mmol/L Potassium Level 3.9 3.5-5.1 mmol/L Chloride Level 103 98-107 mmol/L Carbon Dioxide Level 33 21-32 mmol/L Anion Gap 4.0 3-11 mmol/L Blood Urea Nitrogen 9 7-18 mg/dl Creatinine 0.71 0.60-1.20 mg/dl Est Creatinine Clear Calc Drug Dose 109.0 ml/min Estimated GFR () 110.4 Estimated GFR (Non- 95.2 BUN/Creatinine Ratio 12.7 10-20 Random Glucose 120 70-99 mg/dl Calcium Level 9.1 8.5-10.1 mg/dl Magnesium Level 2.2 1.8-2.4 mg/dl
[2016-06-16] MEDS: WARFARIN SOD 10 MG TAB PO SCH (15:54)
[2016-06-16] MEDS: HEPARIN 25,000 UNIT/500ML D5W 500 ML IV PRN (15:55)
[2016-06-16] MEDS: METOPROLOL TARTRATE 50 MG TAB PO SCH (20:35)
[2016-06-16] MEDS: AMITRIPTYLINE HCL 50 MG TAB PO SCH (20:35)
[2016-06-17] VITALS (7 sets, daily range): BP systolic 108–179; BP diastolic 66–95; PULSE 58–76; TEMP 36.6–37; O2SAT 92–98
[2016-06-17 06:41] LABS: INR 2.1 (0.9-1.1); PARTIAL THROMBOPLASTIN RATIO 2.4; PROTHROMBIN TIME (PATIENT) 23.3 SECONDS (9.0-12.0)
[2016-06-17] MEDS: PRENATAL VITAMIN TAB PO SCH (07:29)
[2016-06-17] MEDS: ESCITALOPRAM OXALATE 20 MG TAB PO SCH (07:29)
[2016-06-17] MEDS: RANITIDINE HCL 150 MG TAB PO SCH ×2 (07:29→20:41)
[2016-06-17] MEDS: ASPIRIN 81 MG ECTAB PO SCH (07:30)
[2016-06-17] MEDS: POTASSIUM CHLORIDE 10 MEQ TABCR PO SCH (07:30)
[2016-06-17] MEDS: ACYCLOVIR 400 MG TAB PO SCH ×2 (07:30→20:48)
[2016-06-17] MEDS: METOPROLOL TARTRATE 50 MG TAB PO SCH ×2 (07:31→20:42)
[2016-06-17] MEDS: FUROSEMIDE 40 MG TAB PO SCH (07:31)
[2016-06-17] MEDS: OXYCODONE/ACETAMINOPHEN 5-325 TAB PO PRN ×2 (07:37→20:45)
[2016-06-17] MEDS ORDERED: [UNRECOGNIZED DRUG - REMARK] ONE (09:30)
--- NOTE | 2016-06-17 10:51 | Cardiology Follow-Up ---
Subjective General Date of Service: Jun 17, 2016. Chief Complaint: follow-up exertional shortness of breath, palpitations Pt evaluation today including: conversation w/ patient, physical exam History of Present Illness The patient is a 55 year old female seen in cardiology follow-up. The patient is in much better mood today and has more energy. She remains in sinus rhythm having spontaneously converted from atrial fibrillation to sinus rhythm at just after 4 PM on 06/15/16. She has tolerated the first 2 doses of metoprolol tartrate 50 mg well thus far. Her EKG today 06/17/16 reveals sinus rhythm at 65 bpm with first-degree AV block, incomplete right bundle branch block. The QT interval still prolonged at 530 ms compared to 521 ms the day before. Allergies Coded Allergies: Penicillins (Verified Allergy, Mild, rash, 06/14/16) Social History Smoking Status: Never Smoker Hx Tobacco Use In Past Year?: No Hx Alcohol Use - Type And Amou: No Hx Substance Use - Type And Am: No Physical Exam Vital Signs Last Vital Signs Documentation Date Time Temp Pulse Resp B/P Pulse Ox O2 Delivery O2 Flow Rate FiO2 06/17/16 08:00 Room Air 06/17/16 07:45 36.7 72 20 179/95 96 Physical Exam Constitutional: Level of Distress: NAD ENMT: normal ENT inspection Neck: supple Lungs: Auscultation: CTA except as noted, no wheezing Cardiovascular: Heart Auscultation: RRR, no murmurs Extremities: no cyanosis, no edema Neurologic: Gait & Station: pertinent finding (no focal deficits) Assessment and Plan Assessment and Plan Impression: 55-year-old female 1. Newly diagnosed paroxysmal atrial fibrillation 2. Status post bioprosthetic aortic valve replacement, ascending thoracic aorta graft placement having had severe bicuspid aortic valve stenosis and ascending aortography 3. History of depression/anxiety 4. Prolonged QT interval Recommendations: The patient has been on Lexapro for depression and amitriptyline for apparent migraine prophylaxis. The case is discussed with Dr. Sutton. Lexapro is going to be transition to Zoloft. In the amitriptyline dose will be reduced. The QT interval will be monitored closely. Amiodarone has been discontinued as has carvedilol, and metoprolol tartrate 50 mg twice a day has been started in their place. Continue current dose of furosemide 40 mg by mouth daily. I think her volume status is stable but I do think she needs ongoing diuretic therapy. Increase activity as tolerated. Monitor on telemetry. Her INR is at goal at 2.1 and therefore heparin infusion has been discontinued. Her Coumadin dose has been increased from 10 mg daily to 5 mg daily. She continues to feel well, possible discharge within the next 24-48 hours. She will need outpatient follow-up at the anticoagulation clinic at [facility]. She will need outpatient follow-up with Dr. Leslie who is her primary hydro pneumatic tester. Laboratory Results Last 24 Hours Test 06/17/16 06:13 Prothrombin Time 23.3 SECONDS Prothromb Time International Ratio 2.1 Activated Partial Thromboplast Time 62.7 SECONDS Partial Thromboplastin Ratio 2.4
--- NOTE | 2016-06-17 11:02 | Progress Note ---
Internal Med Progress Note Date of Service: Jun 17, 2016. Provider Documentation: SUBJECTIVE: The patient was seen and examined Feels much better today Denies any more palpitation Remains in SR OBJECTIVE: Vital Signs-as noted below Exam: General-no distress at rest Eyes-normal ENT-normal Neck-Supple Lungs-Decreased breath sound bilaterally Minimal crackles at the bases Heart-Regular,2/6 ESM aortic area Abdomen-Benign,no masses,bowel sound present Extremities-Trace edema bilaterally Neuro-AAOx3 Lab data as noted below. ASSESSMENT & PLAN: NEW ONSET ATRIAL FIBRILLATION WITH RVR:S/P AVR -bioprosthetic Postoperative atrial fibrillation, expected - patient presenting with increasing generalized weakness, shortness of breath, and palpitations; found to be in afib with RVR with rates in the 130s - had bioprosthetic aortic valve replacement and ascending aortic aneurysm repair on 05/29 for bicuspid aortic valve and aortic stenosis -Started on IV Heparin ,IV Cardizem and IV Amiodarone - electrolytes and TSH WNL -Appreciate Cardiology input -Wean Off Cardizem,transition to oral Amio and OP Carvedilol started -Coumadin started as well -ECHO;The study was technically limited. * There is a bioprosthetic aortic valve. * The prosthetic aortic valve is not well visualized. * The prosthetic aortic valve is well-seated. * No hemodynamically significant valvular aortic stenosis. * There is no significant aortic regurgitation. * Ejection Fraction = 55-60%. -Medications reevaluated by the Head Girls [employer] -Amiodarone and Carvedilol have been stopped -Started on BB -continue Coumadin -Remains in SR and rate controlled HTN - BP controlled - Carvedilol discontinued -Metoprolol started MULTINODULAR THYROID - noted on CTA chest - will need thyroid US for follow up PROLONGED QTC - noted to be 502 - will hold amitriptyline and escitalopram - check daily EKG - avoid QTC prolonging agents when able -Both amitriptyline and Lexapro can cause Prolong QT and can be accentuated by Amiodarone -D/C Laxapro and start Zoloft -Decrease dose of Amitriptyline and discontinuation advised DEPRESSION Lexapro is changed to Zoloft 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 - outpatient followup DVT PROPHYLAXIS - on heparin drip -oral Coumadin started DISPO Likely discharge tomorrow Vital Signs: Date Time Temp Pulse Resp B/P Pulse Ox O2 Delivery O2 Flow Rate FiO2 06/17/16 08:00 Room Air 06/17/16 07:45 36.7 72 20 179/95 96 06/17/16 04:00 Room Air 06/17/16 03:18 36.7 63 22 146/77 95 Room Air 06/17/16 00:01 96 Room Air 06/16/16 22:59 36.8 68 19 107/58 96 Room Air 06/16/16 20:00 97 Room Air 06/16/16 19:32 36.8 70 20 122/80 97 Room Air 06/16/16 16:00 95 Room Air 06/16/16 15:52 36.9 67 18 108/72 94 Room Air 06/16/16 12:00 95 Room Air 06/16/16 11:38 36.7 67 22 131/69 93 Room Air Lab Results: Results Past 24 Hours Test 06/17/16 06:13 Range/Units Prothrombin Time 23.3 9.0-12.0 SECONDS Prothromb Time International Ratio 2.1 0.9-1.1 Activated Partial Thromboplast Time 62.7 21.0-31.0 SECONDS Partial Thromboplastin Ratio 2.4
[2016-06-17] MEDS ORDERED: SERTRALINE HCL 50 MG TAB PO ONE (11:19)
[2016-06-17] MEDS: LORAZEPAM 2 MG/ML 1 ML VIAL IV PRN (13:08)
[2016-06-17] MEDS ORDERED: ALPRAZOLAM 0.5 MG TAB PO PRN (13:15)
[2016-06-17] MEDS ORDERED: DIVALPROEX 250 MG EXTENDED REL TAB PO ONE (13:45)
[2016-06-17] MEDS ORDERED: WARFARIN SOD 5 MG TAB PO SCH (16:00)
[2016-06-17] MEDS: DIVALPROEX 250 MG EXTENDED REL TAB PO SCH (20:43)
[2016-06-17] MEDS ORDERED: AMITRIPTYLINE HCL 25 MG TAB PO SCH (21:00)
[2016-06-18 00:01] VITALS: O2SAT 94
[2016-06-18 03:36] VITALS: BP 150/93; PULSE 68; TEMP 36.7; O2SAT 94
[2016-06-18 04:00] VITALS: O2SAT 94
[2016-06-18 06:56] LABS: HEMATOCRIT 37.5 % (37-47); MEAN CELL VOLUME 95.4 fL (80-100); MEAN CORPUSCULAR HEMOGLOBIN 31.6 pg (25-34); MEAN CORPUSCULAR HGB CONC 33.1 g/dl (32-36); MEAN PLATELET VOLUME 9.3 fL (7.4-10.4); PLATELET COUNT 415 K/uL (130-400); RED BLOOD COUNT 3.93 M/uL (4.2-5.4); WHITE BLOOD COUNT 5.67 K/uL (4.8-10.8)
[2016-06-18 07:02] LABS: INR 3.5 (0.9-1.1); PROTHROMBIN TIME (PATIENT) 39.5 SECONDS (9.0-12.0)
[2016-06-18 07:24] LABS: BUN/CREATININE RATIO 13.6 (10-20); CALCIUM 9.1 mg/dl (8.5-10.1); CREATININE 0.69 mg/dl (0.60-1.20); POTASSIUM 4.1 mmol/L (3.5-5.1)
[2016-06-18 08:01] VITALS: BP 125/80; PULSE 74; TEMP 36.3; O2SAT 95
[2016-06-18] MEDS: FUROSEMIDE 40 MG TAB PO SCH (08:12)
[2016-06-18] MEDS: ACYCLOVIR 400 MG TAB PO SCH (08:13)
[2016-06-18] MEDS: ASPIRIN 81 MG ECTAB PO SCH (08:13)
[2016-06-18] MEDS: METOPROLOL TARTRATE 50 MG TAB PO SCH (08:14)
[2016-06-18] MEDS: RANITIDINE HCL 150 MG TAB PO SCH (08:14)
[2016-06-18] MEDS: DIVALPROEX 250 MG EXTENDED REL TAB PO SCH (08:14)
[2016-06-18] MEDS: POTASSIUM CHLORIDE 10 MEQ TABCR PO SCH (08:15)
[2016-06-18] MEDS: PRENATAL VITAMIN TAB PO SCH (08:15)
[2016-06-18] MEDS: OXYCODONE/ACETAMINOPHEN 5-325 TAB PO PRN (08:19)
[2016-06-18] MEDS ORDERED: SERTRALINE HCL 50 MG TAB PO SCH (09:00)
--- NOTE | 2016-06-18 11:21 | Progress Note ---
Internal Med Progress Note Date of Service: Jun 18, 2016. Provider Documentation: SUBJECTIVE: The patient was seen and examined Feels much better today Has psychiatric issue-will be seen by psychiatrist before discharge today Remains in SR OBJECTIVE: Vital Signs-as noted below Exam: General-no distress at rest Eyes-normal ENT-normal Neck-Supple Lungs-Decreased breath sound bilaterally Minimal crackles at the bases Heart-Regular,2/6 ESM aortic area Abdomen-Benign,no masses,bowel sound present Extremities-Trace edema bilaterally Neuro-AAOx3 Lab data as noted below. ASSESSMENT & PLAN: NEW ONSET ATRIAL FIBRILLATION WITH RVR:S/P AVR -bioprosthetic Postoperative atrial fibrillation, expected - patient presenting with increasing generalized weakness, shortness of breath, and palpitations; found to be in afib with RVR with rates in the 130s - had bioprosthetic aortic valve replacement and ascending aortic aneurysm repair on 05/29 for bicuspid aortic valve and aortic stenosis -Started on IV Heparin ,IV Cardizem and IV Amiodarone - electrolytes and TSH WNL -Appreciate Cardiology input -Weaned Off Cardizem,transition to oral Amio and OP Carvedilol started -Coumadin started as well -ECHO;The study was technically limited. * There is a bioprosthetic aortic valve. * The prosthetic aortic valve is not well visualized. * The prosthetic aortic valve is well-seated. * No hemodynamically significant valvular aortic stenosis. * There is no significant aortic regurgitation. * Ejection Fraction = 55-60%. -Medications reevaluated by the Legal Document Assistant -Amiodarone and Carvedilol have been stopped -Started on BB -continue Coumadin -Remains in SR and rate controlled -discharge home today HTN - BP controlled - Carvedilol discontinued -Metoprolol started MULTINODULAR THYROID - noted on CTA chest - will need thyroid US for follow up PROLONGED QTC - noted to be 502 - will hold amitriptyline and escitalopram - check daily EKG - avoid QTC prolonging agents when able -Both amitriptyline and Lexapro can cause Prolong QT and can be accentuated by Amiodarone -D/C Laxapro and start Zoloft -Decrease dose of Amitriptyline and discontinuation advised -QT interval improved DEPRESSION Lexapro is changed to Zoloft Psychiatry consulted Migraine Has been on Amitriptyline as prophylaxis Took Depakote before Will change to Depakote and discontinue Amitriptyline to reduce QT prolongation 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 - outpatient followup DVT PROPHYLAXIS - on heparin drip -oral Coumadin started DISPO Likely discharge today Vital Signs: Date Time Temp Pulse Resp B/P Pulse Ox O2 Delivery O2 Flow Rate FiO2 06/18/16 08:01 36.3 74 22 125/80 95 Room Air 06/18/16 08:00 Room Air 06/18/16 04:00 94 Room Air 06/18/16 03:36 36.7 68 19 150/93 94 Room Air 06/18/16 00:01 94 Room Air 06/17/16 23:27 37.0 67 18 108/66 94 Room Air 06/17/16 20:00 Room Air 06/17/16 19:57 36.7 76 20 135/87 94 Room Air 06/17/16 16:00 Room Air 06/17/16 15:41 36.8 70 20 156/75 98 Room Air 06/17/16 12:00 Room Air 06/17/16 11:35 36.6 58 20 112/74 92 Room Air Lab Results: Results Past 24 Hours Test 06/18/16 06:30 Range/Units White Blood Count 5.67 4.8-10.8 K/uL Red Blood Count 3.93 4.2-5.4 M/uL Hemoglobin 12.4 12.0-16.0 g/dL Hematocrit 37.5 37-47 % Mean Corpuscular Volume 95.4 80-100 fL Mean Corpuscular Hemoglobin 31.6 25-34 pg Mean Corpuscular Hemoglobin Concent 33.1 32-36 g/dl RDW Standard Deviation 45.5 36.4-46.3 fL RDW Coefficient of Variation 13.1 11.5-14.5 % Platelet Count 415 130-400 K/uL Mean Platelet Volume 9.3 7.4-10.4 fL Prothrombin Time 39.5 9.0-12.0 SECONDS Prothromb Time International Ratio 3.5 0.9-1.1 Sodium Level 140 136-145 mmol/L Potassium Level 4.1 3.5-5.1 mmol/L Chloride Level 104 98-107 mmol/L Carbon Dioxide Level 31 21-32 mmol/L Anion Gap 5.0 3-11 mmol/L Blood Urea Nitrogen 9 7-18 mg/dl Creatinine 0.69 0.60-1.20 mg/dl Est Creatinine Clear Calc Drug Dose 110.9 ml/min Estimated GFR () 112.8 Estimated GFR (Non- 97.3 BUN/Creatinine Ratio 13.6 10-20 Random Glucose 106 70-99 mg/dl Calcium Level 9.1 8.5-10.1 mg/dl
--- NOTE | 2016-06-18 11:37 | Cardiology Follow-Up ---
Subjective General Date of Service: Jun 18, 2016. Chief Complaint: follow-up exertional shortness of breath, palpitations Pt evaluation today including: conversation w/ patient, physical exam History of Present Illness The patient is a 55 year old female seen in follow-up. She is sitting in a bedside chair in his feeling comfortable. Telemetry reveals stable sinus rhythm and sinus bradycardia without significant PVCs and without recurrence of atrial fibrillation. Allergies Coded Allergies: Penicillins (Verified Allergy, Mild, rash, 06/14/16) Social History Smoking Status: Never Smoker Hx Tobacco Use In Past Year?: No Hx Alcohol Use - Type And Amou: No Hx Substance Use - Type And Am: No Physical Exam Vital Signs Last Vital Signs Documentation Date Time Temp Pulse Resp B/P Pulse Ox O2 Delivery O2 Flow Rate FiO2 06/18/16 08:01 36.3 74 22 125/80 95 Room Air Physical Exam Constitutional: Level of Distress: NAD ENMT: normal ENT inspection Neck: supple Lungs: Auscultation: CTA except as noted, no wheezing Cardiovascular: Heart Auscultation: RRR, no murmurs Extremities: no cyanosis, no edema Neurologic: Gait & Station: pertinent finding (no focal deficits) Assessment and Plan Assessment and Plan EKG performed this morning 06/18/16 revealed sinus rhythm at 70 bpm with first- degree AV block and incomplete right bundle branch block, 522 ms. INR today 06/18/16 was 3.5. Impression: 55-year-old female 1. Newly diagnosed paroxysmal atrial fibrillation 2. Status post bioprosthetic aortic valve replacement, ascending thoracic aorta graft placement having had severe bicuspid aortic valve stenosis and ascending aortography 3. History of depression/anxiety 4. Prolonged QT interval Recommendations: The patient has been on Lexapro for depression and amitriptyline for apparent migraine prophylaxis. The case is discussed with Dr. Sutton. Lexapro is going to be transition to Zoloft. Amitriptyline doses been reduced. Amiodarone has been discontinued. Carvedilol has been discontinued. Metoprolol tartrate 50 mg. He has been started in its place and her heart rate has been well-controlled. Continue current dose of furosemide 40 mg by mouth daily. I reviewed her previous EKG history in her record. She had a tracing performed on 03/10/16 prior to her cardiac surgery at which time her baseline QT interval was 501 ms so I do not think this is an acute issue that warrants additional hospital time. I recommend that we hold her Coumadin dose today for INR 3.5, and discharge her on medications as outlined above with plans to follow-up with the [facility] anticoagulation clinic at [place], with dose of 5 mg daily starting tomorrow. Cardiology follow up in 2-[address] Leslie. Laboratory Results Last 24 Hours Test 06/18/16 06:30 White Blood Count 5.67 K/uL Red Blood Count 3.93 M/uL Hemoglobin 12.4 g/dL Hematocrit 37.5 % Mean Corpuscular Volume 95.4 fL Mean Corpuscular Hemoglobin 31.6 pg Mean Corpuscular Hemoglobin Concent 33.1 g/dl RDW Standard Deviation 45.5 fL RDW Coefficient of Variation 13.1 % Platelet Count 415 K/uL Mean Platelet Volume 9.3 fL Prothrombin Time 39.5 SECONDS Prothromb Time International Ratio 3.5 Sodium Level 140 mmol/L Potassium Level 4.1 mmol/L Chloride Level 104 mmol/L Carbon Dioxide Level 31 mmol/L Anion Gap 5.0 mmol/L Blood Urea Nitrogen 9 mg/dl Creatinine 0.69 mg/dl Est Creatinine Clear Calc Drug Dose 110.9 ml/min Estimated GFR () 112.8 Estimated GFR (Non- 97.3 BUN/Creatinine Ratio 13.6 Random Glucose 106 mg/dl Calcium Level 9.1 mg/dl
[2016-06-18 12:29] VITALS: BP 116/78; PULSE 67; TEMP 36.5; O2SAT 93
--- NOTE | 2016-06-18 12:52 | Psychiatric Consultation ---
Consultation Date of Consultation Jun 18, 2016. Identifying Data Rosi Jeffery is a 55-year-old female who currently lives in [] [alone] with []. Rosi Jeffery was admitted on a [201 voluntary] [302 involuntary] commitment. Patient is admitted from [home] [transfer from the medical floor]. The patient was brought to the ED by the [police] [family] [ambulance] [self transport]. Information provided by the patient is considered to be [reliable] [unreliable]. Chief Complaint "I got put on Lexapro at [facility] as I had hard time in recovery from my surgery ". History of Present Illness 55 yr old CF admitted for Artial Fib with Recent Cardiac Value Replacement at [facility] May 29, longstanding reported h/o Depression and Anxiety with past psychiatric and therapy treatment, been off psychiatric meds for About 2 years per pt. pt has viewed therapy as not helpful in the past, not seeking it now. uses cannabis frequently and invested in continuing this with weariness of engaging doctors about it. Pt having psychosocial stressors. pt's irritability during hospital course likely tied to anxiety and stress response including stress to medical concerns. h/o various ssri's and depakote for mood/anxiety concerns in past. placed on lexapro at [facility] given her anxiety and depressive concerns per pt. Dr. Sutton changed to zoloft. He also stopped elavil (25mg) that was used for migraine and replacing with depakote given her prolong QTc (503) Pt has been on Zoloft in past as well as lexapro and willing to take zoloft. She viewed depakote as for mood /anxiety symptoms in past trial and unsure if helped with migraines. Pt had been having 3-6 migraines most months despite elavil being rx'd and uses Imitrex when has a migraine. Pt states the migraines aspect that is distressing to her is vision concerns of a white twinkling during the migraine and less concerned about migraine pain concerns. She had one day since her recent surgery of 4 migraines in the same day. She denied any h/o SI or SIB or suicidal concerns. She denied any h/o manic or psychotic symptoms. She uses cannabis a few times a month and very rarely has any alcohol and does not use other substances and does not smoke cigs. PHQ 9 score today of 10 Past Psychiatric History Current OP Treatment: no current treatment Prior OP Treatment: psychiatrist (15 years with a psychaitrist but not for atleast 2 years ), therapist (seen many over the years, none every helped ) Prior Psych Hospitalizations: [facility] Past Medical/Surgical History History of Concussion/Seizure: No (1) Anxiety (2) Bicuspid aortic valve (3) HTN (hypertension) (4) GERD (gastroesophageal reflux disease) (5) Depression Allergies Allergies: Coded Allergies: Penicillins (Verified Allergy, Mild, rash, 06/14/16) Home Medications Scheduled Acyclovir (Acyclovir), 1 TAB PO BID Amitriptyline Hcl (Elavil), 50 MG PO HS Aspirin (Aspirin Ec), 81 MG PO QAM Carvedilol (Carvedilol), 3.125 MG PO BID Escitalopram Oxalate (Lexapro), 20 MG PO QAM Furosemide (Lasix), 40 MG PO DAILY Multivit/Min/Iron/Fol Ac/Pren ( Vitamin), 1 TAB PO DAILY Potassium Chloride Microencaps (Potassium Chloride Er), 10 MEQ PO DAILY Ranitidine Hcl (Zantac), 150 MG PO BID Scheduled PRN Oxycodone Ir (Roxicodone Ir), 5 MG PO Q4H PRN for Severe Pain Sumatriptan Succinate (Imitrex), 50 MG PO DIRECTED PRN for Migraine Family History Valve replacement FATHER History of Suicide: No History of Substance Abuse: No Psychiatric History: No Alcohol Use Alcohol Use In Past 12 Months: Yes (very limited in past year, drinks at most one drink every few months ) Smoking Use Smoking Status: Never Smoker Substance History cannabis for many years, tends to use few times a month, does not like to endorse this, weary of judgment and over focus by clinicians if known per pt Personal History Education: graduated from high school Work History: working at [employer] and loves it Children: none Legal History: none Additional Comments: has a brother in [place] and a younger sister, do not speak to them, views father as narcissistic and that wants to be center of attention and feels mother blames her for everything, feels support from Aunt. She is aiming to be active this summer after recovery form her surgery . Examination Vital Signs Vital Signs Past 12 Hours Date Time Temp Pulse Resp B/P Pulse Ox O2 Delivery O2 Flow Rate FiO2 06/18/16 12:00 Room Air 06/18/16 08:01 36.3 74 22 125/80 95 Room Air 06/18/16 08:00 Room Air 06/18/16 04:00 94 Room Air 06/18/16 03:36 36.7 68 19 150/93 94 Room Air Laboratory Results Last 24 Hours Test 06/18/16 06:30 White Blood Count 5.67 K/uL Red Blood Count 3.93 M/uL Hemoglobin 12.4 g/dL Hematocrit 37.5 % Mean Corpuscular Volume 95.4 fL Mean Corpuscular Hemoglobin 31.6 pg Mean Corpuscular Hemoglobin Concent 33.1 g/dl RDW Standard Deviation 45.5 fL RDW Coefficient of Variation 13.1 % Platelet Count 415 K/uL Mean Platelet Volume 9.3 fL Prothrombin Time 39.5 SECONDS Prothromb Time International Ratio 3.5 Sodium Level 140 mmol/L Potassium Level 4.1 mmol/L Chloride Level 104 mmol/L Carbon Dioxide Level 31 mmol/L Anion Gap 5.0 mmol/L Blood Urea Nitrogen 9 mg/dl Creatinine 0.69 mg/dl Est Creatinine Clear Calc Drug Dose 110.9 ml/min Estimated GFR () 112.8 Estimated GFR (Non- 97.3 BUN/Creatinine Ratio 13.6 Random Glucose 106 mg/dl Calcium Level 9.1 mg/dl Mental Examination During interview pt is: alert and oriented, cooperative Appearance: other (hospital gown) Motor behavior is: steady gait & station, no abnormal motor movements Speech: normal in rate, rhythm & volume Affect: mood congruent Mood is: anxious Thought process: goal directed, linear, logical, clear, coherent Thought content: reality based without delusions Suicidal thought are: denied Homicidal thoughts are: denied Hallucinations: denies visual Cognition: memory grossly intact, attention grossly intact Intelligence estimated to be: average Insight: fair Judgement: good Impression / Recommendations Impression 55 yr old CF admitted for Artial Fib with Recent Cardiac Value Replacement at [facility] May 29, longstanding reported h/o Depression and Anxiety with past psychiatric and therapy treatment, prolong q2 migraines recently started lexapro, being switched to zoloft elavil switched to depakote (both for qt prolongation concerns) Inventory Assets Strengths: aware of her anxiety and depression Needs: treatment of anxiety and depression with balance of medical aspects of presentation Risk Factors Assessment : Yes /single/: Yes Health problems: Yes Mental Health Diagnoses: Yes Previous attempt: No Protective Factors Assessment Supportive family: No Recommendations (1) Depression - lexapro switched to zoloft 50mg by Dr. Sutton, Zoloft is lower risk to impact QT (of note cymbalta and prozac are 2 related meds that have even less risk of impacting QT, zoloft while considered overall clinical insignificant impact on QT sometimes raises it by 3. - elavil for migraine preventation switched to Depakote that pt states was sued to treat depression anxiety in past. pt had breakthrough migraines on elavil and aim is better control of all conditions with less impact on QT , pt denied h/o manic symptoms or dx of bipolar - counseling/psych resources given to pt, she is not open to this at this time though given negative past experiences (2) Anxiety - lexapro switched to zoloft by Dr. Sutton, Zoloft is lower risk to impact QT (of note cymbalta and prozac are 2 related meds that have even less risk of impacting QT, zoloft while considered overall clinical insignificant impact on QT sometimes raises it by 3. - elavil for migraine preventation switched to Depakote that pt states was sued to treat depression anxiety in past. pt had breakthrough migraines on elavil and aim is better control of all conditions with less impact on QT , pt denied h/o manic symptoms or dx of bipolar - counseling/psych resources given to pt, she is not open to this at this time though given negative past experiences
[2016-06-18 13:25] VITALS: BP 116/78; PULSE 67; TEMP 36.5; O2SAT 93
[2016-06-18] MEDS ORDERED: METO50TA17 PO (13:46)
[2016-06-18] MEDS ORDERED: DPKSR250 PO (13:46)
[2016-06-18] MEDS ORDERED: CMD5 PO (13:46)
[2016-06-18] MEDS ORDERED: ZLF50 PO (13:46)
--- NOTE | 2016-06-18 13:55 | Discharge Instructions ---
Discharge Instructions Date of Service Jun 18, 2016. Admission Reason for Admission: Atrial Fibrillation With Rvr Discharge Discharge Diagnosis / Problem: Paroxysmal Atrial Fibrillation,S/P Bioprosthetic AVR Discharge Goals Goal(s): Prevent Disease Progression Activity Recommendations Activity Limitations: resume your previous activity . Instructions / Follow-Up Instructions / Follow-Up Your PCP on 06/22/16 at 11:05 AM.[facility] will call you for follow up.Cardiology in 2-3 weeks Current Hospital Diet Patient's current hospital diet: AHA Diet (Heart Healthy), Low Sodium Diet (2gm Na) Discharge Diet Recommended Diet: AHA Diet (Heart Healthy), Low Sodium Diet (2gm Na) Pending Studies Studies pending at discharge: no Medical Emergencies . Who to Call and When: Medical Emergencies: If at any time you feel your situation is an emergency, please call 911 immediately. . Non-Emergent Contact Non-Emergency issues call your: Primary Care Provider . Past History Medical & Surgical History: (1) Paroxysmal atrial fibrillation with rapid ventricular response (2) Bicuspid aortic valve (3) Ascending aortic aneurysm (4) Herpes zoster (5) HTN (hypertension) (6) GERD (gastroesophageal reflux disease) (7) H/O tubal ligation (8) S/P AVR (aortic valve replacement) . "Provider Documentation" section prepared by Michelle Sutton. . VTE Core Measure Inpt VTE Proph given/why not?: Other Anticoagulation (heparin drip)
--- NOTE | 2016-06-18 16:20 | Discharge Summary ---
Discharge Summary Date of Service Jun 18, 2016. Discharge Summary Admission Date: Jun 14, 2016 at 16:15 Discharge Date: Jun 18, 2016 Discharge Disposition: Home Principal Diagnosis: Paroxysmal Atrial Fibrillation,S/P Bioprosthetic AVR Secondary Diagnoses/Problems: Please see H&P and Hospital Progress note Consultations: Cardiology and Psychiatry Medication Reconciliation New Medications: Divalproex Sodium (Divalproex Sodium ER) 250 Mg Tabcr 250 MG PO BID for 30 Days, #60 Metoprolol Tartrate (Metoprolol Tartrate) 50 Mg Tab 50 MG PO BID for 30 Days, #60 TAB Sertraline HCl (Sertraline HCl) 50 Mg Tab 50 MG PO QAM for 30 Days, #30 TAB Warfarin Sod (Coumadin) 5 Mg Tab 5 MG PO DAILY@16 for 30 Days, #30 TAB Adjust dose to Kepp INR between 2 to 3 Continued Medications: Acyclovir (Acyclovir) 400 Mg Tab 1 TAB PO BID for 90 Days, #180 TAB 3 Refills Aspirin (Aspirin Ec) 81 Mg Tab 81 MG PO QAM Furosemide (Lasix) 40 Mg Tab 40 MG PO DAILY, TAB Multivit/Min/Iron/Fol Ac/Pren ( Vitamin) Tab 1 TAB PO DAILY, TAB Oxycodone Ir (Roxicodone Ir) 5 Mg Tab 5 MG PO Q4H PRN for Severe Pain, TAB Potassium Chloride Microencaps (Potassium Chloride Er) 10 Meq Tab 10 MEQ PO DAILY for 90 Days, #90 TAB 3 Refills Ranitidine Hcl (Zantac) 150 Mg Tab 150 MG PO BID, TAB Sumatriptan Succinate (Imitrex) 50 Mg Tab 50 MG PO DIRECTED PRN for Migraine, TAB Discontinued Medications: Amitriptyline Hcl (Elavil) 50 Mg Tab 50 MG PO HS, TAB Carvedilol (Carvedilol) 3.125 Mg Tab 3.125 MG PO BID Escitalopram Oxalate (Lexapro) 20 Mg Tab 20 MG PO QAM, TAB Admission Information HPI (per Admitting provider): 55 year old female who presents to the ER with palpitations and shortness of breath. Patient recently underwent aortic valve replacement with bioprosthetic valve and ascending aortic aneurysm repair with grafting on 05/29 at [facility]. Patient reports she had been feeling well since her surgery however over the past few days has noted increasing weakness, shortness of breath, and palpitations. Patient denies chest pain or pressure. She reports shortness of breath at rest as well as with exertion. She denies lower extremity edema. No lightheadedness, dizziness, diaphoresis, or syncopal events. She denies abdominal pain, nausea, vomiting, and diarrhea. No fever or chills. She denies urinary symptoms. In the ER, patient is found to be in afib with RVR with rates in the 130s. She was given Cardizem 25mg IV bolus followed by a drip. Rates improved to the 90s. Patient's symptoms have improved as well. Labs are unremarkable. Past Medical/Surgical History Medical Problems: (1) Ascending aortic aneurysm Status: Chronic (2) Bicuspid aortic valve Status: Chronic (3) Depression Status: Chronic (4) GERD (gastroesophageal reflux disease) Status: Chronic (5) Herpes zoster Status: Chronic (6) HTN (hypertension) Status: Chronic Surgical Problems: (1) H/O tubal ligation Status: Chronic (2) S/P ascending aortic aneurysm repair Status: Chronic (3) S/P AVR (aortic valve replacement) Status: Chronic Social History Smoking Status: Never Smoker Alcohol Use: none Drug Use: none Immunizations History of Tetanus Vaccine?: Yes Tetanus Immunization Date: Oct 02, 2007 Multi-Drug Resistant Organisms History of MDRO: Yes Type of MDRO: MRSA Allergies Coded Allergies: Penicillins (Verified Allergy, Mild, rash, 06/14/16) Home Medications Scheduled Acyclovir (Acyclovir), 1 TAB PO BID Amitriptyline Hcl (Elavil), 50 MG PO HS Aspirin (Aspirin Ec), 81 MG PO QAM Carvedilol (Carvedilol), 3.125 MG PO BID Escitalopram Oxalate (Lexapro), 20 MG PO QAM Furosemide (Lasix), 40 MG PO DAILY Multivit/Min/Iron/Fol Ac/Pren ( Vitamin), 1 TAB PO DAILY Potassium Chloride Microencaps (Potassium Chloride Er), 10 MEQ PO DAILY Ranitidine Hcl (Zantac), 150 MG PO BID Scheduled PRN Oxycodone Ir (Roxicodone Ir), 5 MG PO Q4H PRN for Severe Pain Sumatriptan Succinate (Imitrex), 50 MG PO DIRECTED PRN for Migraine Review of Systems 10 point review of systems was completed with the pertinent positives and negatives noted per the HPI Physical Ex - H&P Physical Exam Vital Signs Date Time Temp Pulse Resp B/P Pulse Ox O2 Delivery O2 Flow Rate FiO2 06/14/16 17:30 106 20 117/73 96 06/14/16 17:00 106 20 117/73 96 Room Air 06/14/16 15:15 93 20 123/64 97 Room Air 06/14/16 14:45 125 22 113/78 95 Room Air 06/14/16 14:34 94 Room Air 06/14/16 14:08 137 06/14/16 13:57 36.6 138 18 90/54 98 Room Air General Appearance: no apparent distress Head: normocephalic Eyes: normal inspection ENT: hearing grossly normal Neck: supple, no JVD Respiratory/Chest: lungs clear, normal breath sounds, no respiratory distress Cardiovascular: no edema, + irregularly irregular (rate controlled) Abdomen/GI: normal bowel sounds, non tender, soft Extremities/Musculoskelatal: normal inspection, no calf tenderness Neurologic/Psych: no motor/sensory deficits, alert, normal mood/affect, oriented x 3 Skin: normal color, warm/dry Diagnostics - H&P Diagnostics Laboratory Results Results Past 24 Hours Test 06/14/16 14:20 06/14/16 14:23 06/14/16 14:27 Range/Units White Blood Count 9.57 4.8-10.8 K/uL Red Blood Count 4.01 4.2-5.4 M/uL Hemoglobin 12.8 12.0-16.0 g/dL Hematocrit 37.8 37-47 % Mean Corpuscular Volume 94.3 80-100 fL Mean Corpuscular Hemoglobin 31.9 25-34 pg Mean Corpuscular Hemoglobin Concent 33.9 32-36 g/dl Platelet Count 583 130-400 K/uL Mean Platelet Volume 9.5 7.4-10.4 fL Neutrophils (%) (Auto) 58.7 % Lymphocytes (%) (Auto) 28.8 % Monocytes (%) (Auto) 8.8 % Eosinophils (%) (Auto) 2.2 % Basophils (%) (Auto) 1.1 % Neutrophils # (Auto) 5.61 1.4-6.5 K/uL Lymphocytes # (Auto) 2.76 1.2-3.4 K/uL Monocytes # (Auto) 0.84 0.11-0.59 K/uL Eosinophils # (Auto) 0.21 0-0.5 K/uL Basophils # (Auto) 0.11 0-0.2 K/uL RDW Standard Deviation 45.2 36.4-46.3 fL RDW Coefficient of Variation 13.1 11.5-14.5 % Immature Granulocyte % (Auto) 0.4 % Immature Granulocyte # (Auto) 0.04 0.00-0.02 K/uL Prothrombin Time 10.6 9.0-12.0 SECONDS Prothromb Time International Ratio 1.0 0.9-1.1 Activated Partial Thromboplast Time 25.4 21.0-31.0 SECONDS Partial Thromboplastin Ratio 1.0 Sodium Level 138 136-145 mmol/L Potassium Level 4.2 3.5-5.1 mmol/L Chloride Level 103 98-107 mmol/L Carbon Dioxide Level 25 21-32 mmol/L Anion Gap 10.0 18.0 16-25 mmol/L Blood Urea Nitrogen 12 7-18 mg/dl Creatinine 0.72 0.60-1.20 mg/dl Est Creatinine Clear Calc Drug Dose 107.2 ml/min Estimated GFR () 108.5 Estimated GFR (Non- 93.6 BUN/Creatinine Ratio 16.4 10-20 Random Glucose 105 70-99 mg/dl Calcium Level 8.9 8.5-10.1 mg/dl Magnesium Level 2.5 1.8-2.4 mg/dl Total Bilirubin 0.4 0.2-1 mg/dl Aspartate Amino Transf (AST/SGOT) 35 15-37 U/L Alanine Aminotransferase (ALT/SGPT) 62 12-78 U/L Alkaline Phosphatase 119 45-117 U/L Total Creatine Kinase 35 26-192 U/L Creatine Kinase MB 0.7 0.5-3.6 ng/ml Creatine Kinase MB Ratio 2.0 0-3.0 Troponin I < 0.015 0-0.045 ng/ml Total Protein 7.5 6.4-8.2 gm/dl Albumin 3.3 3.4-5.0 gm/dl Globulin 4.2 2.5-4.0 gm/dl Albumin/Globulin Ratio 0.8 0.9-2 Thyroid Stimulating Hormone (TSH) 0.913 0.300-4.500 uIu/ml Bedside Hemoglobin 12.9 12.0-16.0 g/dl Bedside Hematocrit 38 37-47 % Bedside Sodium 137 135-144 mEq/L Bedside Potassium 4.2 3.3-5.0 mEq/L Bedside Chloride 101 101-112 mEq/L Bedside Total CO2 23 24-31 mEq/l Bedside Blood Urea Nitrogen 11 7-18 mg/dl Bedside Creatinine 0.6 0.6-1.3 mg/dl Bedside Glucose (other) 103 70-99 mg/dl Bedside Ionized Calcium ([place]) 1.18 1.12-1.32 mmol/l Bedside Lactic Acid Venous 1.20 0.90-1.70 mmol/L Microbiology Results 06/14/16 Blood Culture, Received Pending 06/14/16 Blood Culture, Received Pending Diagnostic Radiology CXR IMPRESSION: Slight haziness at the left lung base, likely secondary to overlying soft tissues. No evidence of failure. No evidence of lobar consolidation CTA CHEST IMPRESSION: 1. There is no evidence of pulmonary embolus in the main, lobar, or segmental pulmonary arteries. 2. Cardiomegaly and small pericardial effusion. 3. There is presternal soft tissue induration, possibly related to recent surgery/sternotomy. Clinical correlation will be required. 4. Trace pleural effusions. There is no airspace consolidation seen typical for pneumonia. 5. Emphysema. 6. There are small pulmonary nodules (at least 5) measuring up to 5 mm. These can be followed as per the Fleischner criteria. 7. The thyroid gland is enlarged, heterogeneous, and multinodular. Follow-up with a nonemergent thyroid ultrasound is recommended. 8. Suspect hepatic steatosis. 9. Additional findings as above. Impression - H&P Impression Assessment and Plan NEW ONSET ATRIAL FIBRILLATION WITH RVR HX AV REPLACEMENT, ASCENDING AORTIC ANEURYSM REPAIR - admit to tele - patient presenting with increasing generalized weakness, shortness of breath, and palpitations; found to be in afib with RVR with rates in the 130s - had bioprosthetic aortic valve replacement and ascending aortic aneurysm repair on 05/29 for bicuspid aortic valve and aortic stenosis - s/p Cardizem 25mg IV bolus, followed by drip with improvement in rates - suspect due to recent aortic valve replacement - electrolytes and TSH WNL, no infectious source noted - initial troponin negative, will continue to trend; check resting echo - BP low on presentation however improved with HR control - will start IV heparin - patient was started on Lasix post op - will continue - case discussed with Dr. Leslie - will stop IV cardizem and transition to IV amiodarone PROLONGED QTC - noted to be 502 - will hold amitriptyline and escitalopram - check daily EKG - avoid QTC prolonging agents when able HTN - BP controlled - holding carvedilol for now while on amio drip DEPRESSION - holding amitriptyline and escitalopram due to prolonged QTC MULTINODULAR THYROID - noted on CTA chest - will need thyroid US for follow up 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 - outpatient followup DVT PROPHYLAXIS - on heparin drip DISPO - In my clinical judgment this beneficiary meets acute admission criteria, established by [facility], that includes being hospitalized through two midnights. I have seen and examined the patient and discussed the case with the provider above. I agree with the assessment and plan as stated. [place], DO Level of Care Telemetry Resuscitation Status FULL RESUSCITATION VTE Prophylaxis VTE Risk Assessment Done? Y/N: Yes Risk Level: Moderate Given or contraindicated: Other Anticoagulation (heparin drip) Physical Exam (per Admitting): General Appearance: no apparent distress Head: normocephalic Eyes: normal inspection ENT: hearing grossly normal Neck: supple, no JVD Respiratory/Chest: lungs clear, normal breath sounds, no respiratory distress Cardiovascular: no edema, + irregularly irregular (rate controlled) Abdomen/GI: normal bowel sounds, non tender, soft Extremities/Musculoskelatal: normal inspection, no calf tenderness Neurologic/Psych: no motor/sensory deficits, alert, normal mood/affect, oriented x 3 Skin: normal color, warm/dry Hospital Course NEW ONSET ATRIAL FIBRILLATION WITH RVR:S/P AVR -bioprosthetic Postoperative atrial fibrillation, expected - patient presenting with increasing generalized weakness, shortness of breath, and palpitations; found to be in afib with RVR with rates in the 130s - had bioprosthetic aortic valve replacement and ascending aortic aneurysm repair on 05/29 for bicuspid aortic valve and aortic stenosis -Started on IV Heparin ,IV Cardizem and IV Amiodarone - electrolytes and TSH WNL -Appreciate Cardiology input -Weaned Off Cardizem,transition to oral Amio and OP Carvedilol started -Coumadin started as well -ECHO;The study was technically limited. * There is a bioprosthetic aortic valve. * The prosthetic aortic valve is not well visualized. * The prosthetic aortic valve is well-seated. * No hemodynamically significant valvular aortic stenosis. * There is no significant aortic regurgitation. * Ejection Fraction = 55-60%. -Medications reevaluated by the Maintenance Worker -Amiodarone and Carvedilol have been stopped -Started on BB -continue Coumadin -Remains in SR and rate controlled -discharge home today HTN - BP controlled - Carvedilol discontinued -Metoprolol started MULTINODULAR THYROID - noted on CTA chest - will need thyroid US for follow up PROLONGED QTC - noted to be 502 - will hold amitriptyline and escitalopram - check daily EKG - avoid QTC prolonging agents when able -Both amitriptyline and Lexapro can cause Prolong QT and can be accentuated by Amiodarone -D/C Laxapro and start Zoloft -Decrease dose of Amitriptyline and discontinuation advised -QT interval improved DEPRESSION Lexapro is changed to Zoloft Psychiatry consulted Migraine Has been on Amitriptyline as prophylaxis Took Depakote before Will change to Depakote and discontinue Amitriptyline to reduce QT prolongation 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 - outpatient followup DVT PROPHYLAXIS - on heparin drip -oral Coumadin started DISPO Likely discharge today Total time spent on discharge = 40 minutes This includes examination of the patient, discharge planning, medication reconciliation, and communication with other providers. Discharge Instructions Date of Service Jun 18, 2016. Admission Reason for Admission: Atrial Fibrillation With Rvr Discharge Discharge Diagnosis / Problem: Paroxysmal Atrial Fibrillation,S/P Bioprosthetic AVR Discharge Goals Goal(s): Prevent Disease Progression Activity Recommendations Activity Limitations: resume your previous activity . Instructions / Follow-Up Instructions / Follow-Up Your PCP on 06/22/16 at 11:05 AM.[facility] will call you for follow up.Cardiology in 2-3 weeks Current Hospital Diet Patient's current hospital diet: AHA Diet (Heart Healthy), Low Sodium Diet (2gm Na) Discharge Diet Recommended Diet: AHA Diet (Heart Healthy), Low Sodium Diet (2gm Na) Pending Studies Studies pending at discharge: no Medical Emergencies . Who to Call and When: Medical Emergencies: If at any time you feel your situation is an emergency, please call 911 immediately. . Non-Emergent Contact Non-Emergency issues call your: Primary Care Provider . Past History Medical & Surgical History: (1) Paroxysmal atrial fibrillation with rapid ventricular response (2) Bicuspid aortic valve (3) Ascending aortic aneurysm (4) Herpes zoster (5) HTN (hypertension) (6) GERD (gastroesophageal reflux disease) (7) H/O tubal ligation (8) S/P AVR (aortic valve replacement) . "Provider Documentation" section prepared by Michelle Sutton. . VTE Core Measure Inpt VTE Proph given/why not?: Other Anticoagulation (heparin drip) <Electronically signed by Michelle Sutton M.D.> Additional Copies To Tri Garcia D.O.
== END 2016-06-18 15:30 | disposition home or self-care (01) | DRG 310 ==
LOC: ENRESERVTM → ENRESERVDT → C.EDB 13:51 → C.2T 16:15 → EDBEDREQ 17:05
PROVIDERS: ADMIT Hospitalist; ATTEND Internal Medicine
DX: I48.91 Unspecified atrial fibrillation (principal); K21.9 Gastro-esophageal reflux disease without esophagitis; I10 Essential (primary) hypertension; I35.0 Nonrheumatic aortic (valve) stenosis; E04.2 Nontoxic multinodular goiter; I45.81 Long QT syndrome; Z79.82 Long term (current) use of aspirin

== ENCOUNTER → 2016-11-23 | Outpatient (CLI) | payer OTHER ==
[~2016-11-23] MED LIST changes: -AMT/25 PO; +ASPI81TA28 PO; +CMD5 PO; -CRG3125 PO; +DPKSR250 PO; +FRS/40 PO; +METO50TA17 PO; +OXYC1TAB3 PO; +POTA10TA32 PO; +PRENTAB26 PO; +ZLF50 PO
--- NOTE | 2016-11-24 07:35 | SPLIT NIGHT TECHNICIAN REPORT ---
[facility] Split Night Polysomnogram - Sales Promotion Officer Report Study date: 11/23/2016 Referring Physician: Nel Isaac M.D. Name: SOL WOOD Sales Promotion Officer: Amanda Cho, PSGT. Date of : 1960 Height: 56 years, Height 5' 5.5" Sex: Female Weight: 220 lbs Age: 56 Neck Circum:16.5 inches BMI: Medications: 36.05 Zantac 150 mg, Zovirax 400 mg, Cymbalta 60 mg, Topamax 25 mg, Lopressor 50 mg, Aspirin 81 mg , Imitrex 50 mg. Patient History 56 yr. old female presents for split night study. states she snores, wakes often during the night to use restroom play games etc.ESS= 9, Neck = 16.5 inches. Parameters Monitored NPSG: E1-M2, E2-M1, Fp1-M2, Fp2-M1, F3-M2, F4-M2, F4-M1, C3-M2, C4-M2, C4-M1, O1-M2, O2-M2, O2-M1, T3-M2, T4-M1, P3-M2, P4-M1, CHIN1, CHIN2, HR, EKG, Legs, PFLOW, SNOR, FLOW, CFLOW, Tidal Volume, THOR, ABDO, SpO2, PLTH, CPRESS, ETCO2 Wave, ETCO2, pH SLEEP SUMMARY DATA DIAGNOSTIC TREATMENT Lights Out: 10:00:04 PM NONE Lights On: 1:05:34 AM 5:23:34 AM Total Recording Time (TRT): 185.8 min. 250.7 min. Total Sleep Time (TST): 161.8 min. 245.2 min. NREM Time: 161.8 min. 140.7 min. REM Time: 0.0 min. 104.5 min. Sleep Period Time (SPT): 175.8 min. 249.2 min. Sleep Efficiency (SE): 87 % 98 % Sleep Latency: 10.0 min. NONE min. Arousal Index: 51.6 9.3 PAP Treatment Levels: 4, 6, 7, 9, 10, 11, 12 * Optimal Pressure(s) SLEEP STAGING DATA DIAGNOSTIC TREATMENT Duration (min) TST % Duration (min) TST % Stage Wake: 24.0 min. -- 4.0 min. -- WASO: 14.0 min. -- 4.0 min. -- NREM: 161.8 min. 100 % 140.7 min. 57 % Stage N1: 2.5 min. 2 % 1.0 min. 0 % Stage N2: 154.3 min. 95 % 131.2 min. 54 % Stage N3: 5.0 min. 3 % 8.5 min. 3 % REM: 0.0 min. 0 % 104.5 min. 43 % POSITIONAL DATA Event Count Index Event Count Index Supine: 62 72.4 36 12.0 Supine NREM: 62 72.4 25 13.8 Supine REM: N/A N/A 11 9 Non-Supine: 125 68.0 5 4.6 Non-Supine NREM: 125 68.0 5 9.5 Non-Supine REM: N/A N/A 0 0.0 AROUSAL SUMMARY DATA: Event Count Index Event Count Index Apnea Arousals: 52 29.3 1 2.4 Hypopnea Arousals: 31 11.5 4 1.0 Snore Arousals: 19 7.0 13 3.2 PLM Arousals: 9 3.3 1 0.2 Non-Specific Arousals: 24 8.9 19 4.6 Total Arousals: 139 51.6 38 9.3 MYOCLONUS (PLM) Event Count Index Event Count Index PLM: 90 33.4 65 15.9 PLM AROUSAL: 9 3.3 1 0.2 PLM W/O AROUSAL 90 33.4 64 15.7 PLM W/RESP EVENT 17 0.0 1 0.0 MYOCLONUS (PLM) Event Count Index Event Count Index LM: 6 53.8 20 4.9 LM AROUSAL: 6 2.2 1 0.2 LM W/O AROUSAL LM W/RESP EVENT LM NON SPECIFIC 120 44.5 82 20.1 HEART RATE DATA DIAGNOSTIC TREATMENT Sleep (bpm): 71 67 REM (bpm): N/A 95 NREM (bpm): 90 93 Tachycardia Count: 0 0 Tachycardia Duration: 0.00 0 Bradycardia Count: 0 0 Bradycardia Duration: 0.00 0 DIAGNOSTIC PORTION TREATMENT PORTION RESPIRATORY DATA Event Count Index Event Count Index AHI: -- 69.4 -- 10.0 RDI: -- 69.4 -- 10 Obstructive Apnea: 76 28.2 6 1.5 Central Apnea: 2 0.7 3 0.7 Mixed Apnea: 1 0.4 1 0.2 Hypopnea: 108 40.1 31 7.6 RERA: 0 0.0 0 0.0 Total Apneas: 79 29.3 10 2.4 RESPIRATORY DATA REM NREM SLEEP REM NREM SLEEP Supine Position: Obstructive Apneas: N/A 26 26 1 5 6 Central Apneas: N/A 0 0 1 2 3 Mixed Apneas: N/A 1 1 0 1 1 Hypopneas: N/A 35 35 9 17 26 RERA N/A 0 0 0 0 0 Total Supine Events: N/A 62 62 11 25 36 Supine AHI: N/A 72.4 72.4 9 13.8 12.0 Supine RDI: N/A 72.4 72.4 9.3 13.8 12.0 REM NREM SLEEP REM NREM SLEEP Non-Supine Position: Obstructive Apneas: N/A 50 50 0 0 0 Central Apneas: N/A 2 2 0 0 0 Mixed Apneas: N/A 0 0 0 0 0 Hypopneas: N/A 73 73 0 5 5 RERA N/A 0 0 0 0 0 Total Supine Events: N/A 125 125 0 5 5 Supine AHI: N/A 68.0 68.0 0.0 9.5 4.6 Supine RDI: N/A 68.0 68.0 0.0 9.5 4.6 OXYGEN DESTAURATION DATA: Event Count Index Event Count Index REM Desaturations: N/A N/A 3 1.7 NREM Desaturations: 187 69.4 28 11.9 SNORE DATA DIAGNOSTIC TREATMENT Snore Time: 25.9 1:14:19 AM Snore TST%: 7 13 Snore Arousal Count: 19 13 Snore Arousal Index: 7.0 3.2 Desaturation Event Summary: Minimum %SpO2 Event Count Mean/Min/Max Duration(sec.) Desaturation Index % Time In Bed > 90 210 27.7 / 4.3 / 59.8 38.8 76.1 86 - 90 32 23.9 / 5.0 / 53.8 27.1 16.6 81 - 85 0 N/A 0.0 6.0 76 - 80 0 N/A 0.0 1.3 71 - 75 0 N/A 0.0 0.0 66 - 70 0 N/A 0.0 0.0 61 - 65 0 N/A 0.0 0.0 56 - 60 0 N/A 0.0 0.0 51 - 55 0 N/A 0.0 0.0 < 50 0 N/A 0.0 0.0 OXYGEN SATURATION DATA DIAGNOSTIC TREATMENT SpO2 Mean Sleep: 90 % 94 % SpO2 Mean REM: N/A % 95 % SpO2 Mean NREM: 90 % 93 % SpO2 Minimum Sleep: 75 % 79 % SpO2 Minimum REM: N/A % 79 % SpO2 Minimum NREM: 75 % 85 % Time Below 90% (TST): 73.4 9.1 Time Below 88% (TST): 46.7 4.8 Total REM NREM Awake <50% 0.0 min. 0.0 min. 0.0 min. 0.0 min. 51 - 60% 0.0 min. 0.0 min. 0.0 min. 0.0 min. 61 - 70% 0.0 min. 0.0 min. 0.0 min. 0.0 min. 71 - 80% 5.6 min. 0.2 min. 5.5 min. 0.0 min. 81 - 90% 96.5 min. 7.1 min. 87.4 min. 1.9 min. 91 - 100% 324.9 min. 97.1 min. 207.5 min. 20.3 min. Average 92 95 91 93 Minimum SpO2 75 79 75 87 Desaturation Event Index 30.1 1.7 42.6 0.0 # Desat. Events below 89% 180 2 178 N/A Time(%) with Saturation below 89% 15.6 1.3 14.3 0.0 Time(min.) with Saturation below 89% 66.7 5.3 61.2 0.1 Recording Sales Promotion Officer Comments: Split -Night: MS. Wood slept in the right, left, and supine positions. No cardiac arrhythmia or PLM's noted. No bruxism noted. Snoring was noted and scored as a 3 on a scale of 1 through 5. (0=no snoring, 5=snoring loud enough to be heard through a closed door or down the [address]dez way) At 1:05 am, MS. Wood has met specific Split-Night criteria during the diagnostic portion of this study. CPAP was initiated at +4 CMH2O and up-titrated to an optimal level of +12 CMH2O, which nearly eliminated all respiratory events and snoring. A medium Res Med F10 Air Fit, was used during titration Ms. Wood awoke to use the restroom one time during the night. MS. Wood stated, I did sleep better I think I slept more solid. The final report will be interpreted and signed by a sleep physician. The completed physician report will then be placed in the patient medical record Therapy Event: Therapy (cm H20) 0 4 6 7 9 10 11 12 Total Time at Pressure (min.) 185.8 13.8 18.0 27.6 18.4 75.3 52.6 43.5 TST at Pressure (min.) 161.8 13.8 18.0 27.6 18.4 72.8 52.6 42.0 # Periods 1 1 1 1 1 1 1 1 Sleep Onset (min.) 10.0 0.0 0.0 0.0 0.0 0.0 0.0 0.0 REM Onset (min.) N/A N/A N/A 12.9 0.0 0.0 N/A 26.5 Sleep Efficiency % 87 100 100 100 100 96 100 96 Wakefulness (%) 12.9 0.0 0.0 0.0 0.0 3.3 0.0 3.4 Wakefulness (min.) 24.0 0.0 0.0 0.0 0.0 2.5 0.0 1.5 NREM 1 (%) 1.3 0.0 0.0 0.0 0.0 0.7 0.0 1.1 NREM 1 (min.) 2.5 0.0 0.0 0.0 0.0 0.5 0.0 0.5 NREM 2 (%) 83.0 100.0 94.1 20.0 0.0 23.7 100.0 56.4 NREM 2 (min.) 154.3 13.8 16.9 5.5 0.0 17.9 52.6 24.5 NREM 3 (%) 2.7 0.0 5.9 27.0 0.0 0.0 0.0 0.0 NREM 3 (min.) 5.0 0.0 1.1 7.4 0.0 0.0 0.0 0.0 REM (%) 0.0 0.0 0.0 53.1 100.0 72.3 0.0 39.0 REM (min.) 0.0 0.0 0.0 14.6 18.4 54.5 0.0 17.0 # Arousals 139 2 5 5 1 9 5 11 Arousal Index 51.6 8.7 16.7 10.9 3.3 7.4 5.7 15.7 # Snore 1,104 59 191 227 216 569 277 11 Snore Index 409.5 256.3 636.8 494.2 704.8 468.7 315.9 15.7 AHI 69.4 39.1 13.3 32.7 3.3 4.9 2.3 5.7 AHI Supine 72.4 39.1 13.3 32.7 3.3 1.6 2.3 20.7 AHI Non-Supine 68.0 N/A N/A N/A N/A 8.6 N/A 0.0 NREM AHI 69.4 39.1 13.3 27.8 N/A 16.3 2.3 9.6 REM AHI N/A N/A N/A 36.9 3.3 1.1 N/A 0.0 RDI 69.4 39.1 13.3 32.7 3.3 4.9 2.3 5.7 # Obstructive 76 2 0 4 0 0 0 0 # Central Ap 2 1 0 1 1 0 0 0 # Mixed 1 0 1 0 0 0 0 0 # Hypopneas 108 6 3 10 0 6 2 4 RERAS 0 0 0 0 0 0 0 0 Total Respiratory Events 187 9 4 15 1 6 2 4 Time Below SpO2 89.00% (min.) 60.2 0.4 0.0 5.0 0.6 0.0 0.0 0.4 Mean NREM SpO2 (%) 90 92 93 93 N/A 94 94 94 Mean REM SpO2 (%) N/A N/A N/A 91 95 96 N/A 96 Mean Sleep SpO2 (%) 90 92 93 92 95 95 94 95 Min NREM SpO2 (%) 75 87 89 87 N/A 89 91 85 Min REM SpO2 (%) N/A N/A N/A 79 83 93 N/A 94 Position Supine (min.) 51.4 13.8 18.0 27.6 18.4 38.0 52.6 11.6 Position Non-supine (min.) 110.3 0.0 0.0 0.0 0.0 34.8 0.0 30.4 LM Index Sleep 87.2 4.3 6.7 6.5 6.5 3.3 38.8 55.7 LM Index NREM 87.2 4.3 6.7 4.6 N/A 0.0 38.8 93.5 LM Index REM N/A N/A N/A 8.2 6.5 4.4 N/A 0.0 Mean Heart Rate (bpm) 71 66 69 72 74 69 65 61 Min Heart Rate (bpm) 59 61 65 65 69 58 58 58
--- NOTE | 2016-12-05 09:08 | POLYSOMNOGRAPH REPORT ---
TEST DATE: 11/23/2016 REFERRING PERSON: Dr. Bill Isaac. GROUP DYNAMICS INSTRUCTOR: Carmella Cho. Ms. Leal is a 56-year-old female sent for a split night sleep study. She has a history of snoring, waking often during the night and has unrefreshing sleep. Her [place] sleepiness scale score on the evening of this study is 9. BMI is 36.05. Following the technical and digital specifications of the [employer] [place] [employer] ([employer]ASM) a standard diagnostic polysomnogram was performed monitoring EEG, EOG, EMG (chin and leg deviations), oxygen saturation, body position, digital video, respiratory effort and airflow. The sleep Stage and event scoring was based on the AASM Manual for the Scoring of Sleep and Associated Events 2007 edition. Apneas are defined as a drop in the peak thermal sensor excursion by >90% of baseline for at least 10 seconds. Hypopneas were scored using the 4% oxygen desaturation rule ([employer]A-[employer]) and a decrease in the nasal pressure excursions by >30% of baseline for at least 10 seconds. Respiratory effort-related arousal (RERA's) is defined as a sequence of breaths lasting at least 10 seconds characterized by increasing respiratory effort or flattening of the nasal pressure waveform leading to an arousal from sleep when the sequence of breaths does not meet criteria for an apnea or hypopnea. Apnea Hypopnea index (AHI) is defined as the number of apneas and hypopneas occurring in an hour of sleep. Respiratory disturbance index (RDI) is defined as the number of apneas, hypopneas, and RERA's occurring in an hour of sleep. Ms. Leal did qualify for a split night sleep study. She was observed for 161.8 minutes of sleep time. During that time, she had 2% N1 sleep, 95% on N2 sleep and 3% N3 sleep. There were 139 arousals from sleep. Twenty-four of these arousals were nonspecific, 9 were due to periodic limb movements of sleep, 19 were due to snoring and the remainder were due to respiratory events. There were 90 periodic limb movements noted on this test. Limb movement with arousal index was 3.3. Mean saturation during observation was 90% with desaturations to 75% with respiratory events. During the diagnostic portion of this test, this patient had 76 obstructive apnea, 2 central apnea, and 1 mixed apnea. Additionally, there were 108 hypopnea. Apnea-hypopnea index was markedly elevated at 69.4. This is consistent with very severe sleep apnea. Therefore, at 1:00 a.m., this patient was started on CPAP therapy. She chose a medium ResMed F10 AirFit full facemask for her titration. Over the remainder of the night, Ms. Leal was titrated from a CPAP pressure of 4 to a CPAP pressure of 12. Increasing pressures were needed to prevent apneas, hypopneas and arousals. Over the remainder of the night, this patient was titrated from a CPAP pressure of 4 to a CPAP pressure of 12. He was observed on a pressure of 12 for 42 minutes of sleep time. During that time, there were 17 minutes of non-supine REM sleep. AHI and RDI on this pressure were both 5.7 and saturations were less than 89% for 0.4 minutes of recorded time. IMPRESSION AND PLAN: Successful split night sleep study in this patient with severe sleep apnea and significant nocturnal hypoxemia. Given these results, I would suggest that this patient be started on CPAP at a pressure of 13 using a medium ResMed AirFit F10 mask. A download from her machine can be reviewed in 1 month both to check compliance as well as AHI and further pressure adjustments can occur at that time.
== END | disposition home or self-care (01) ==
LOC: C.NEUR 20:00
PROVIDERS: ATTEND Family Medicine
DX: G47.30 Sleep apnea, unspecified (principal)

== ENCOUNTER → 2016-12-06 | Outpatient (CLI) | payer OTHER ==
--- NOTE | 2016-12-06 12:21 | DIAGNOSTIC IMAGING REPORT ---
GUIDANCE NEEDLE PLACEMENT CLINICAL HISTORY: 56 years-old Female presenting with 3 LARGE THYROID NODULES. TECHNIQUE: Real-time grayscale and limited color Doppler ultrasound imaging of the thyroid was performed for ultrasound-guided fine-needle aspiration. COMPARISON: 11/23/2016. PROCEDURE: The risks, benefits, and alternatives of the procedure were discussed with the patient. Written informed consent was obtained. A timeout was performed to confirm patient identity. The patient was placed supine in ultrasound, and bilateral nodules in thyroid were localized by ultrasound and selected for fine needle aspiration. The neck was prepped and draped in the usual aseptic fashion. The solid left nodule was aspirated under ultrasound guidance with 2 passes utilizing 25-gauge needles. The solid right nodule was subsequently aspirated under ultrasound guidance with 2 passes utilizing 25-gauge needles. Last week, the spongiform left nodule was aspirated under ultrasound guidance with 1 pass utilizing a 25-gauge needle. Specimens were reviewed by the pathologist at the time of biopsy and were deemed adequate for diagnosis except for the past through the spongiform nodule. Notably, this nodule is primarily fluid collection likely suggesting a benign etiology. The patient tolerated the procedure well. IMPRESSION: Successful fine-needle aspiration of three thyroid nodules as above. Electronically signed by: Shiva Martínez M.D. 12/06/2016 12:19 PM Dictated Date/Time: 12/06/2016 12:17 PM
== END | disposition home or self-care (01) ==
LOC: C.ULTR 10:29
PROVIDERS: ATTEND Internal Medicine
DX: E04.2 Nontoxic multinodular goiter (principal)